=== PATIENT | female | born 1960 | race Caucasian/White ===

== ENCOUNTER 2017-02-08 17:12 | Emergency (ER) | payer MEDICARE, MEDICAID ==
[~2017-02-08] VITALS: Ht 157.5 cm; Wt 135.6 kg
[~2017-02-08 17:12] MED LIST: ACETAMINOPHEN-COD #3 PO; ASPIRIN 81MG TA81 MG PO; BACTROBAN2% TP; BAYER ASPIRIN C81 MG PO; BISOPROLOL/HCTZ1 TA1 PO; CLINDAMYCIN HC300 MG PO; CLONAZEPAM1 M2 PO; DIGOXIN0.25 MG NG; DIGOXIN0.25 MG PO; GABAPENTIN100 M1 PO; LASIX40 MG PO; NITROGLYCERIN0.4 MG SL; PAROXETINE20 M1 PO; QUALITY CHOICE20 M1 PO; SIMVASTATIN40 MG PO; TYLENOL W/CODEI1 TA2 PO
[2017-02-08 17:37] LABS: AEROMONAS NOT DETECTED (NOT DETECTE); ASTROVIRUS NOT DETECTED (NOT DETECTE); CYCLOSPORA CAYETANENSIS NOT DETECTED (NOT DETECTE); E COLI O157 NOT DETECTED (NOT DETECTE); ENTEROAGGREGATIVE E COLI NOT DETECTED (NOT DETECTE); ENTEROTOXIGENIC E COLI NOT DETECTED (NOT DETECTE); NOROVIRUS NOT DETECTED (NOT DETECTE); SAPOVIRUS NOT DETECTED (NOT DETECTE); SHIGA-LIKE TOXIN PROD. E COLI NOT DETECTED (NOT DETECTE); SHIGELLA/ENTEROINVASIVE E COLI NOT DETECTED (NOT DETECTE); VIBRIO CHOLERAE NOT DETECTED (NOT DETECTE)
[2017-02-08 17:42] LABS: HEMOGLOBIN 15.2 g/dL (12.2-16.2); LYMPH # 1.5 K/mm3 (0.7-4.5); LYMPH % 11.7 % (10-50.0)
[2017-02-08 17:51] LABS: STOOL OCCULT BLOOD POSITIVE (NEG)
--- NOTE | 2017-02-08 18:31 | Emergency Room Report ---
History of Present Illness Time Seen by [id number] Presenting Problem in Triage Pt arrived:Walked Presenting Problem:PT REPORTS HAS HAD APPROX 5-6 BLOODY BOWEL MOVEMENTS IN THE PAST 2 HOURS. PT REPORTS HAD A COLONOSCOPY ON SATURDAY. 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 N Clinical Suspician of Infection? N Mental Status: 1 - Regular (Normal Baseline) Sepsis Risk:Low Sepsis Risk Have you (or family members/close friends) recently traveled outside the [place]? N If Yes, where/when: Have you had exposure to infectious disease within the past month? N TB? Other? Specify: Colonoscopy per Dr. Cardona with polypectomy, note reviewed; discharged stable and has had some bloody bowel movements, watery since that time. Eating well. No abdominal pain. No dizziness. Polypectomy/scope note reviewed and was performed yesterday, 02/07/17. Indication was routine surveillance. ALLERGIES Coded Allergies: No Known Drug Allergies (02/07/17) History Medical History General CAD? No Angina: Yes [place]: No Hypertension? Yes Hyperlipidemia? Yes CHF? No DVT? No PE? No COPD? Yes Asthma? No Anemia? No GERD? No Gastric ulcers? No GI Bleed? No Hernia? Yes Thyroid Problems? No Hypothyroidism? No CVA? No Seizures? No Diabetes? No Renal Insuffiency? No End Stage Renal Disease? No UTI? No Stones? No GB Disease: No Nephritic Syndrome? No Asplenia? No Hepatitis? No Sickle Cell Disease? No Arthritis? No Cataracts? No Glaucoma? No MRSA? No TB? No Cancer? 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 Family History Family Hx Diabetes Yes CAD No Hypertension Yes Hyperlipidemia Yes Cancer Yes TB No Social History Smoking Hx Smoker: Current Every Day Smoker Tobacco: Yes Type Cigarettes Packs/day < 1 Pack Alcohol Alcohol: No Review of Systems All Other Systems Reviewed and Negative Gastrointestinal see HPI Physical Exam Vital Signs Vital Signs Date Time Temp Pulse Resp B/P Pulse O2 O2 Flow FiO2 Ox Delivery Rate 02/08 1827 98.7 90 20 120/83 93 02/08 1718 98.9 82 18 103/78 92 General Appearance normal appearance, WD/WN, no apparent distress Eye Exam - bilateral eye normal exam, bilateral eye PERRL, bilateral eye EOMI Neck normal inspection, non-tender, supple, full range of motion Respiratory Status Yes: trachea midline, chest symmetrical, non tender chest. No: respiratory distress, tender on palpation, use of accessory muscles, pain on inspiration, pain on expiration, productive cough. Lung Sounds bilateral: normal breath sounds, lungs clear. 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 sample sent to lab pos for blood. Neurologic alert, normal exam, no motor/sensory deficits, oriented x 3 Skin intact, normal color, warm/dry Medical Decision Making LABS/Meds/Orders Pt receiving controlled substance in ED? No Results/Orders Laboratory Tests 02/08/17 1730: Sodium 142, Potassium 3.6, Chloride 103, Carbon Dioxide 30, BUN 15, Creatinine 1.1 H, Estimated Creat Clear 122, Estimated GFR (MDRD) 51 L, Glucose 129 H, Calcium 8.6, Total Bilirubin 0.3, AST 30, ALT 39, Alkaline Phosphatase 185 H, Total Protein 7.6, Albumin 3.2 L, Globulin 4.4 H, Albumin/Globulin Ratio 0.7 L, WBC 13.1 H, RBC 4.90, Hgb 15.2, Hct 45.8, MCV 93.5, RDW 13.8, Plt Count 275, MPV 7.6, Gran % 81.6 H, Gran # 10.7 H, Lymphocytes % 11.7, Monocytes % 4.3, Eosinophils % 1.8, Basophils % 0.5, Lymphocytes # 1.5, Monocytes # 0.6, Eosinophils # 0.2, Basophils # 0.1, PUBS MCHC 33.3, [facility] 31.1 02/08/17 1721: Stool Occult Blood POSITIVE 02/08/17 1721: Stl Cyclospora species NOT DETECTED, Stool Rotavirus (PCR) NOT DETECTED, Stool Campylobacter PCR NOT DETECTED, Stool Giardia Lamblia PCR NOT DETECTED, Stl Norovirus GI/GII PCR NOT DETECTED, Adenovirus (PCR) NOT DETECTED, C. difficile Tox (PCR) NOT DETECTED, E. coli (PCR) NOT DETECTED, Yersinia (PCR) NOT DETECTED Current Medication Orders Sig/Sandra Start time Last Medication Dose Route Stop Time Status Admin Sodium Chloride 1,000 ML .Q1H1M 02/08 174 DC 02/08 IV 02/08 1845 1753 Sodium Chloride 10 ML PRN PRN 02/08 1745 AC IV 02/09 174 Orders Procedure Date/time Status IV SALINE LOCK 02/08 173 Active ORTHOSTATIC B/P 02/08 173 Active STOOL OCCULT BLOOD 02/08 173 Complete DIARRHEA PANEL, PCR 02/08 173 Complete CBC WITH AUTO DIFF 02/08 173 Complete CHEM 12 PROFILE 02/08 1730 Complete Consult MD Physician Consult Consult/PCP Dr. Dan: outpatient H and H tomorrow AM lab call result to him Time Called 183 Reason Surgical eval/care Progress ED Progress Notes Date 02/08/17 Time 1928 Comment HDS, no abdominal pain, likely post polypectomy bleeding, d/c home per d/w Dr. Dan Departure Departure Time of Disposition 1928 Disposition DC Home or Self Care(routine) Clinical Impression Primary Impression: Post-op bleeding Qualifiers: Surgical complication system/body Area: digestive system Procedure type: digestive system Qualified Code: K91.840 - Postprocedural hemorrhage of a digestive system organ or structure following a digestive system procedure Condition STABLE Referrals Abelino Moore MD (Family) Patient Instructions DI for Colon Polypectomy Additional Instructions Dr. Dan has requested repeated hemoglobin/hematocrit outpatient tomorrow morning; results to be called to him and he will contact you if level is concerning; go to closest ER if sudden increase in bleeding, any pain or any concerns. Discharge Counseling Counseled pt/family regarding diagnosis, test results, home care, follow up needs ED Critical Care Critical Care No at 1931
--- NOTE | 2017-02-08 18:31 | Emergency Room Report ---
History of Present Illness Time Seen by [id number] Presenting Problem in Triage Pt arrived:Walked Presenting Problem:PT REPORTS HAS HAD APPROX 5-6 BLOODY BOWEL MOVEMENTS IN THE PAST 2 HOURS. PT REPORTS HAD A COLONOSCOPY ON SATURDAY. 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 N Clinical Suspician of Infection? N Mental Status: 1 - Regular (Normal Baseline) Sepsis Risk:Low Sepsis Risk Have you (or family members/close friends) recently traveled outside the [place]? N If Yes, where/when: Have you had exposure to infectious disease within the past month? N TB? Other? Specify: Colonoscopy per Dr. Cardona with polypectomy, note reviewed; discharged stable and has had some bloody bowel movements, watery since that time. Eating well. No abdominal pain. No dizziness. Polypectomy/scope note reviewed and was performed yesterday, 02/07/17. Indication was routine surveillance. ALLERGIES Coded Allergies: No Known Drug Allergies (02/07/17) History Medical History General CAD? No Angina: Yes [place]: No Hypertension? Yes Hyperlipidemia? Yes CHF? No DVT? No PE? No COPD? Yes Asthma? No Anemia? No GERD? No Gastric ulcers? No GI Bleed? No Hernia? Yes Thyroid Problems? No Hypothyroidism? No CVA? No Seizures? No Diabetes? No Renal Insuffiency? No End Stage Renal Disease? No UTI? No Stones? No GB Disease: No Nephritic Syndrome? No Asplenia? No Hepatitis? No Sickle Cell Disease? No Arthritis? No Cataracts? No Glaucoma? No MRSA? No TB? No Cancer? 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 Family History Family Hx Diabetes Yes CAD No Hypertension Yes Hyperlipidemia Yes Cancer Yes TB No Social History Smoking Hx Smoker: Current Every Day Smoker Tobacco: Yes Type Cigarettes Packs/day < 1 Pack Alcohol Alcohol: No Review of Systems All Other Systems Reviewed and Negative Gastrointestinal see HPI Physical Exam Vital Signs Vital Signs Date Time Temp Pulse Resp B/P Pulse O2 O2 Flow FiO2 Ox Delivery Rate 02/08 1827 98.7 90 20 120/83 93 02/08 1718 98.9 82 18 103/78 92 General Appearance normal appearance, WD/WN, no apparent distress Eye Exam - bilateral eye normal exam, bilateral eye PERRL, bilateral eye EOMI Neck normal inspection, non-tender, supple, full range of motion Respiratory Status Yes: trachea midline, chest symmetrical, non tender chest. No: respiratory distress, tender on palpation, use of accessory muscles, pain on inspiration, pain on expiration, productive cough. Lung Sounds bilateral: normal breath sounds, lungs clear. 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 sample sent to lab pos for blood. Neurologic alert, normal exam, no motor/sensory deficits, oriented x 3 Skin intact, normal color, warm/dry Medical Decision Making LABS/Meds/Orders Pt receiving controlled substance in ED? No Results/Orders Laboratory Tests 02/08/17 1730: Sodium 142, Potassium 3.6, Chloride 103, Carbon Dioxide 30, BUN 15, Creatinine 1.1 H, Estimated Creat Clear 122, Estimated GFR (MDRD) 51 L, Glucose 129 H, Calcium 8.6, Total Bilirubin 0.3, AST 30, ALT 39, Alkaline Phosphatase 185 H, Total Protein 7.6, Albumin 3.2 L, Globulin 4.4 H, Albumin/Globulin Ratio 0.7 L, WBC 13.1 H, RBC 4.90, Hgb 15.2, Hct 45.8, MCV 93.5, RDW 13.8, Plt Count 275, MPV 7.6, Gran % 81.6 H, Gran # 10.7 H, Lymphocytes % 11.7, Monocytes % 4.3, Eosinophils % 1.8, Basophils % 0.5, Lymphocytes # 1.5, Monocytes # 0.6, Eosinophils # 0.2, Basophils # 0.1, PUBS MCHC 33.3, [facility] 31.1 02/08/17 1721: Stool Occult Blood POSITIVE 02/08/17 1721: Stl Cyclospora species NOT DETECTED, Stool Rotavirus (PCR) NOT DETECTED, Stool Campylobacter PCR NOT DETECTED, Stool Giardia Lamblia PCR NOT DETECTED, Stl Norovirus GI/GII PCR NOT DETECTED, Adenovirus (PCR) NOT DETECTED, C. difficile Tox (PCR) NOT DETECTED, E. coli (PCR) NOT DETECTED, Yersinia (PCR) NOT DETECTED Current Medication Orders Sig/Sandra Start time Last Medication Dose Route Stop Time Status Admin Sodium Chloride 1,000 ML .Q1H1M 02/08 174 DC 02/08 IV 02/08 1845 1753 Sodium Chloride 10 ML PRN PRN 02/08 1745 AC IV 02/09 174 Orders Procedure Date/time Status IV SALINE LOCK 02/08 173 Active ORTHOSTATIC B/P 02/08 173 Active STOOL OCCULT BLOOD 02/08 173 Complete DIARRHEA PANEL, PCR 02/08 173 Complete CBC WITH AUTO DIFF 02/08 173 Complete CHEM 12 PROFILE 02/08 1730 Complete Consult MD Physician Consult Consult/PCP Dr. Dan: outpatient H and H tomorrow AM lab call result to him Time Called 183 Reason Surgical eval/care Progress ED Progress Notes Date 02/08/17 Time 1928 Comment HDS, no abdominal pain, likely post polypectomy bleeding, d/c home per d/w Dr. Dan Departure Departure Time of Disposition 1928 Disposition DC Home or Self Care(routine) Clinical Impression Primary Impression: Post-op bleeding Qualifiers: Surgical complication system/body Area: digestive system Procedure type: digestive system Qualified Code: K91.840 - Postprocedural hemorrhage of a digestive system organ or structure following a digestive system procedure Condition STABLE Referrals Abelino Moore MD (Family) Patient Instructions DI for Colon Polypectomy Additional Instructions Dr. Dan has requested repeated hemoglobin/hematocrit outpatient tomorrow morning; results to be called to him and he will contact you if level is concerning; go to closest ER if sudden increase in bleeding, any pain or any concerns. Discharge Counseling Counseled pt/family regarding diagnosis, test results, home care, follow up needs ED Critical Care Critical Care No at 1931
[2017-02-08 19:28] LABS: ENTEROPATHOGENIC E COLI DETECTED (NOT DETECTE)
[2017-02-08 19:36] VITALS: BP 120/83
== END 2017-02-08 19:36 | disposition home or self-care (01) ==
LOC: ER 17:12
PROVIDERS: Emergency Medicine
DX: K91.840 Postprocedural hemorrhage of a digestive system organ or structure following a digestive system procedure (principal); Z72.0 Tobacco use; I10 Essential (primary) hypertension; J44.9 Chronic obstructive pulmonary disease, unspecified
CPT/HCPCS: G0328

== ENCOUNTER → 2017-02-13 | Outpatient (CLI) | payer MEDICARE, MEDICAID ==
[2017-02-13 14:28] LABS: HEMOGLOBIN 10.2 g/dL (12.2-16.2)
== END ==
LOC: LAB 13:44
PROVIDERS: Surgery
DX: K91.840 Postprocedural hemorrhage of a digestive system organ or structure following a digestive system procedure (principal)

== ENCOUNTER 2017-03-16 17:43 | Emergency (ER) | payer MEDICARE, MEDICAID ==
[~2017-03-16] VITALS: Ht 157.5 cm; Wt 141.1 kg
--- NOTE | 2017-03-16 19:00 | Emergency Room Report ---
History of Present Illness Time Seen by [id number] Presenting Problem in Triage Pt arrived:Walked Presenting Problem:PT STATES THAT SHE FEELS LIKE SHE CANT CATCH A GOOD BREATH. STATES THAT SHE IS A SMOKER, AND WHEN SHE STARTS COUGHING SHE CAN'T CATCH HER BREATH. WHENA ASKED HOW LONG SHE HAS BEEN SHORT OF BREATH SHE STATES THAT SHE HAD A COLON OSCOPY ON 02/11/17 AND SINCE THEN SHE HAS JUST NOT FELT WELL/RIGHT, HAS BEEN WEAK AND FEELS LIKE HER LEGS WILL FALL OUT FROM UNDERNEATH HER. 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 N Clinical Suspician of Infection? N Mental Status: 1 - Regular (Normal Baseline) Sepsis Risk:Low Sepsis Risk Have you (or family members/close friends) recently traveled outside the [place]? N If Yes, where/when Have you had exposure to infectious disease within the past month? TB? Other? Specify: Tight cough, dry, bronchospasm the last few days. Has baseline CURRAN and hx of CHF , chronic edema. Denies any new edema or calf pain; uses compression stockings. No sputum. Had colitis treated with Abx about six weeks ago sp routine colonoscopy. No fever or congestion this week; no flu sx. No urinary sx or abdominal pain. No gui chest pain but has hx of sleep apnea and tobacco abuse, now on Wellbutrin per PCP. ALLERGIES Coded Allergies: No Known Drug Allergies (02/07/17) Home Medications Reported Medications Furosemide (Lasix 40MG) 40 MG PO BID Nitroglycerin (Nitrostat 0.4MG (1/150 Gr) Tabs #25) 0.4 MG SL [id number] PRN CHEST PAIN Clonazepam (Clonazepam 1MG) 1 MG PO BIDP PRN ANXIETY Omeprazole 20 MG PO BID ASPIRIN (Aspirin) 81 MG PO DAILY Losartan Potassium (Losartan 50MG) 50 MG PO DAILY Bupropion Hcl (Bupropion HCl Sr) 150 MG PO QAM Fluoxetine Hcl (Fluoxetine 20MG) 20 MG PO DAILY FLUTICASONE/VILANTEROL (Breo Ellipta 100-25 Mcg INH) 1 POW IH DAILY History Medical History General CAD? No Angina: Yes [place]: No Hypertension? Yes Hyperlipidemia? Yes CHF? No DVT? No PE? No COPD? Yes Asthma? No Anemia? No GERD? No Gastric ulcers? No GI Bleed? No Hernia? Yes Thyroid Problems? No Hypothyroidism? No CVA? No Seizures? No Diabetes? No Renal Insuffiency? No End Stage Renal Disease? No UTI? No Stones? No GB Disease: No Nephritic Syndrome? No Asplenia? No Hepatitis? No Sickle Cell Disease? No Arthritis? No Cataracts? No Glaucoma? No MRSA? No TB? No Cancer? 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 Family History Family Hx Diabetes Yes CAD No Hypertension Yes Hyperlipidemia Yes Cancer Yes TB No Social History Smoking Hx Smoker: Current Every Day Smoker Tobacco: Yes Type Cigarettes Packs/day < 1 Pack Alcohol Alcohol: No Review of Systems All Other Systems Reviewed and Negative Respiratory see HPI Physical Exam Vital Signs Vital Signs Date Time Temp Pulse Resp B/P Pulse O2 O2 Flow FiO2 Ox Delivery Rate 03/16 2011 74 16 129/59 94 3 03/16 1755 98.2 77 20 135/72 93 General Appearance normal appearance, WD/WN, no apparent distress Eye Exam - bilateral eye normal exam, bilateral eye PERRL, bilateral eye EOMI Neck normal inspection, non-tender, supple, full range of motion Respiratory Status Yes: trachea midline, chest symmetrical, non tender chest, non productive cough. No: respiratory distress, tender on palpation, use of accessory muscles, pain on inspiration, pain on expiration, productive cough. Lung Sounds bilateral: normal breath sounds, lungs clear (tight cough). Cardiovascular normal exam, regular rate/rhythm, no peripheral edema, no gallop Peripheral Pulses Pulses normal Yes Gastrointestinal normal bowel sounds, normal exam, non tender, soft, no organomegaly (reducible ventral hernia;obese) Extremities non-tender, normal range of motion, normal capillary refill, no calf tenderness, pedal edema, compression hose in place Strength 5 Upper Ext (L), 5 Upper Ext (R), 5 Lower Ext (L), 5 Lower Ext (R) Neurologic alert, normal exam, no motor/sensory deficits, oriented x 3 Glascow Coma Scale Glascow Coma Scale Response Value EYE response: 4 Spontaneously 4 MOTOR response: 6 OBEYS 6 VERBAL response: 5 Oriented & Converses 5 Total 15 Skin intact, normal color, warm/dry Medical Decision Making LABS/Meds/Orders Pt receiving controlled substance in ED? No Results/Orders Laboratory Tests 03/16/171909: Sodium 139, Potassium 3.7, Chloride 101, Carbon Dioxide 34 H, BUN 12, Creatinine 0.9, Estimated Creat Clear 155, Estimated GFR (MDRD) 65, Glucose 97, Calcium 9.0, Total Bilirubin 0.3, AST 25, ALT 27, Alkaline Phosphatase 161 H, Troponin I < 0.02, Total Protein 7.7, Albumin 3.5, Globulin 4.2 H, Albumin/ Globulin Ratio 0.8 L, WBC 11.0 H, RBC 4.18 L, Hgb 11.7 L, Hct 37.5, MCV 89.7 , RDW 14.9, Plt Count 394, MPV 7.0 L, Gran % 77.8, Gran # 8.6 H, Lymphocytes % 14.3, Monocytes % 5.0, Eosinophils % 2.0, Basophils % 0.8, Lymphocytes # 1.6, Monocytes # 0.6, Eosinophils # 0.2, Basophils # 0.1, PUBS MCHC 31.1 L, MCH 27.9 Current Medication Orders Sig/Sandra Start time Last Medication Dose Route Stop Time Status Admin Azithromycin 500 MG ONCE ONE 03/16 2030 AC PO 03/16 2031 Albuterol/Ipratropium 0 .STK-MED ONE 03/16 1924 DC INH Methylprednisolone 0 .STK-MED ONE 03/16 1915 DC Sodium Succinate .ROUTE Albuterol/Ipratropium 3 ML ONCE ONE 03/16 1845 DC INH 03/16 1846 Methylprednisolone 125 MG ONCE ONE 03/16 1845 DC 03/16 Sodium Succinate IV 03/16 Sodium Chloride 10 ML PRN PRN 03/16 1845 AC IV 03/17 1841 Orders Procedure Date/time Status RT REQUEST DUONEB 03/16 1842 Active CULTURE, BLOOD 03/16 1842 Active ELECTROCARDIOGRAM REQUEST 03/16 1841 Active IV SALINE LOCK 03/16 1841 Active TROPONIN I 03/16 1841 Complete CBC WITH AUTO DIFF 03/16 1841 Complete CHEM 12 PROFILE 09/30 1841 Complete CHEST(2 VIEWS-NOT PORTABLE) 03/16 1836 Active CM/EKG CM/EKG EKG rate, NSR, rhythm, no evid. of ischemic chgs, no ectopy, normal QRS, normal [place], normal EKG (NSR 77) XRAY/CT/US XRAY/CT/US XRAY chest XR interpretation by reviewed by me Xray Results abnormal, prominent hilum seen previously; mild congestion; mild atelectasis left base Pulmonary Embolism Score WELL'S CRITERIA FOR PE WELL'S CRITERIA FOR PE Response Value Clinical signs/symptoms of DVT NO 0 PE is #1 diagnosis or equally likely NO 0 Heart rate is > 100 NO 0 Immobile at least 3 days, or surgery in past 4 wks NO 0 Previously, obj. diagnosed PE or DVT NO 0 Hemoptysis NO 0 Malignancy w/Rx within 6mo, or palliative NO 0 Total 0 Patient's PE Risk <1pt=LO RISK (<3%) Progress ED Progress Notes Date 03/16/17 Time 2020 Comment Stable, no tachypnea. Departure Departure Time of Disposition 2023 Disposition DC Home or Self Care(routine) Clinical Impression Primary Impression: Bronchitis Condition STABLE Referrals Abelino Moore MD (Family) Patient Instructions Acute Bronchitis Additional Instructions See Dr. Moore in one to two days for follow up; Rx Zithromax, Rx medrol dosepak , continue CPap. Take first doses of Z'max and medrol tomorrow afternoon/early evening. Discharge Counseling Counseled pt/family regarding diagnosis, test results, medications/RX, home care, follow up needs Prescriptions Current Visit Scripts Azithromycin (Azithromycin 250MG Tab) 250 MG PO DAILY #4 TAB take first dose on 03/17/17 as day one initiated in ER Methylprednisolone (Medrol Dose Biju) 4 MG PO UD #1 BIJU TAKE DIRECTED ON PACKAGING ED Critical Care Critical Care No at 2026
[2017-03-16 19:31] LABS: LYMPH # 1.6 K/mm3 (0.7-4.5); LYMPH % 14.3 % (10-50.0)
[2017-03-16 19:46] LABS: HEMOGLOBIN 11.7 g/dL (12.2-16.2)
[2017-03-16 19:51] LABS: BUN 12 mg/dL (7-18); GFR (ESTIMATED) 65 ML/MIN (59-)
[2017-03-16 20:47] VITALS: BP 129/59
--- NOTE | 2017-03-17 10:08 | RADIOLOGY REPORT PS360 ---
CHEST(2 VIEWS-NOT PORTABLE) HISTORY: SOB Patient Age: 56 years: Female Ordering Physician: Brittany Mcmahon MD TECHNIQUE: PA and lateral chest COMPARISON :07/06/2014 and 07/05/2014 CXR. Also August 2013 FINDINGS We again see the prominent right hilum but this appears similar and stable since August 2013. Mild cardiomegaly. Mediastinal structures are otherwise unremarkable. Left will stable. There is some mild accentuation of vascularity but no focal pneumonia. No CHF. No pleural effusion. No pneumothorax. Mild chronic changes. Scattered slight nodular character bilaterally I believe is seen on old studies from 2013 as well. The prior CT abdomen from 2012 showed numerous calcified granulomas towards the lung base which would account for such.. ( I would also incidentally note that the patient had a moderate pericardial effusion on that 2013 CT abdomen. Progress echocardiogram may be of benefit in follow-up current shortness of breath symptoms persist) IMPRESSION: nothing definitely acute. Prominent right will unchanged since August 2013 CXR Cardiomegaly again observed. Note comments in text Granulomatous disease most likely accounts for the tiny scattered nodular densities bilaterally
--- OUTSIDE RECORDS SUMMARY | 2017-03-27 19:35 | External Medical Summary Rpt ---
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 Role Phone [facility] Unavailable Unavailable [facility] Unavailable Unavailable [facility], Unavailable Unavailable [facility] AMARO JUN, AMARO JUN Unavailable Unavailable ALTAMIRANO ROL, ALTAMIRANO Unavailable Unavailable ROL BESSON CYNTHIA, BESSON Unavailable Unavailable CYNTHIA PASTORA JEEVAN, Unavailable Unavailable PASTORA JEEVAN EUNICE KET, EUNICE KET Unavailable Unavailable [facility] Unavailable Unavailable [facility], [facility] Unavailable Unavailable [facility], [facility] COZ YATACO ANG, COZ Unavailable Unavailable YATACO ANG TIFFANI ABDULKADIR, Unavailable Unavailable TIFFANI ABDULKADIR RUELAS MAT, RUELAS Unavailable Unavailable MAT DISANTIS GEENA, Unavailable Unavailable DISANTIS GEENA ASHLEY DEYA, ASHLEY Unavailable Unavailable DEYA [facility] Unavailable Unavailable INC, [facility] Unavailable Unavailable HOSPITAL P, [facility], Unavailable Unavailable [facility] FINE CYNTHIA, FINE CYNTHIA Unavailable Unavailable NOVA RHIANNON, NOVA RHIANNON Unavailable Unavailable [facility] NANDO JEEVAN, NANDO JEEVAN Unavailable Unavailable [facility] Unavailable Unavailable INTERNAL MED, [facility], Unavailable Unavailable [facility] LYNDA RONAL, LYNDA RONAL Unavailable Unavailable [facility] JALEEL, Unavailable Unavailable [facility]ALE[facility] Unavailable Unavailable [facility], [facility] Unavailable Unavailable [facility], [facility] Unavailable Unavailable [facility], [facility] CAROLYN JUN, CAROLYN Unavailable Unavailable JUN TYLER BENY CYNTHIA, Unavailable Unavailable TYLER BENY [facility], Unavailable Unavailable [facility] Unavailable Unavailable VIKTORIA DEYA, VIKTORIA Unavailable Unavailable DEYA ZAGUROVSKAYA MAR, Unavailable Unavailable ZAGUROVSKAYA MAR Purpose Continuity of Care Document - 06-29-2013 through 2016 Problems Code Diagnosis DOS Provider Status G4733 OBSTRUCTIVE 04-05-2015 [facility] ADULT MEDICAL PEDIATRIC EQUIPME E785 HYPERLIPIDE 03-22-2015 [facility] UNSPECIFIED INC I890 LYMPHEDEMA 03-22-2015 [facility] NOT [facility] ELSEWHERE INC CLASSIFIED I10 ESSENTIAL 03-21-2015 [facility] HYPERTENSIO INTERNAL N MED K429 UMBILICAL 03-21-2015 [facility] HERNIA [facility] WITHOUT INTERNAL OBSTRUCTION MED OR GANGRENE Z1231 ENCOUNTER 03-21-2015 [place] [facility]MO MALIG IMAGING ASS NEOPLASM BREAST Z1239 ENCOUNTER 03-21-2015 [facility] SCREENING INC MALIG NEOPLASM BREAST Z6842 BODY MASS 03-21-2015 [facility] INDEX BMI VALLEY 45.0-49.9 INTERNAL ADULT MED 14078 OBSTRUCTIVE 03-06-2015 [facility] MEDICAL EQUIPME 4019 UNSPECIFIED 12-20-2014 [facility] ESSENTIAL [facility] HYPERTENSIO INTERNAL N MED 496 CHRONIC 12-20-2014 [facility] AIRWAY [facility] OBSTRUCTION INTERNAL NEC MED 7822 LOCALIZED 12-20-2014 [facility] SUPERFICIAL [facility] SWELLING INTERNAL MASS OR MED LUMP V7231 ROUTINE 12-20-2014 [facility] GYNECOLOGIC [facility] AL INTERNAL EXAMINATION MED 33334 MORBID 10-25-2014 [facility] OBESITY [facility] INTERNAL MED 4571 OTHER 10-25-2014 [facility] NONINFECTIO VALLEY US INTERNAL LYMPHEDEMA MED 7823 EDEMA 10-25-2014 [facility] INTERNAL MED 2724 OTHER AND 08-26-2014 [facility] UNSPECIFIED [facility]LEY INTERNAL HYPERLIPIDE MED [facility] 82531 UNSPECIFIED 08-26-2014 [facility] DIASTOLIC [facility] HEART INTERNAL FAILURE MED 33982 UNSPECIFIED 08-26-2014 [facility] SLEEP [facility] APNEA INTERNAL MED 7862 COUGH 08-26-2014 [facility] INTERNAL MED 45215 ACUTE AND 07-26-2014 [facility] CHRONIC RESPIRATORY FAILURE 12409 MUSCLE 07-26-2014 [facility] WEAKNESS (GENERALIZE D) 7812 ABNORMALITY 07-26-2014 [facility] OF GAIT 2384 NEOPLASM 07-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 A VERA 7245 UNSPECIFIED 07-24-2014 [facility] BACKACHE SERV [facility] 14065 OTHER 07-21-2014 [facility] AL[facility]ATION SERV OF FOUNDATION CONSCIOUSNE SS V5882 ENCOUNTER 07-20-2014 [facility] FITTING&ADJ SERV [facility] NON-VASCULA R CATHETER NEC 5119 UNSPECIFIED 07-19-2014 [facility] PLEURAL [facility] EFFUSION [facility] 5180 PULMONARY 07-19-2014 [facility] COLLAPSE [facility] 7869 OTH 07-19-2014 [facility] SYMPTOMS SERV INVOLVING [facility] RESPIRATORY SYSTEM&CHES T 514 PULMONARY 07-18-2014 [facility] HYPOSTASIS 51269 ACUTE 07-18-2014 [facility] FAILURE [facility] 35227 OBESITY 07-17-2014 [facility] HYPOVENTILA SERV TION [facility] SYNDROME 486 PNEUMONIA, 07-17-2014 [facility] ORGANISM [facility] UNSPECIFIED [facility] 24260 OTHER 07-17-2014 [facility] DISEASES OF SERV LUNG NOT [facility] ELSEWHERE CLASSIFIED 95245 OTHER 07-17-2014 [facility] NONSPECIFIC SERV ABNORMAL [facility] FINDING OF LUNG FIELD 4293 CARDIOMEGAL 07-16-2014 [facility] Y [facility] 48071 OTHER 07-14-2014 [facility] SPECIFIED SERV CARDIAC [facility] DYSRHYTHMIA S 2763 ALKALOSIS 07-09-2014 [facility] 4150 ACUTE COR 07-09-2014 [facility] PULMONALE [facility] 2762 ACIDOSIS 07-08-2014 [facility] 7856 ENLARGEMENT 07-08-2014 [facility] OF LYMPH SERV NODES [facility] 586 UNSPECIFIED 07-07-2014 [facility] RENAL [facility] FAILURE [facility] 19184 SWELLING OF 07-07-2014 [facility] LIMB [facility] V4611 DEPENDENCE 07-07-2014 [facility] ON [facility] RESPIRATOR [facility] STATUS 4168 OTHER 07-06-2014 [facility] PULMONARY HEART DISEASES 4178 OTHER 07-06-2014 [facility] SPECIFIED SERV DISEASE OF [facility]OUNDATION PULMONARY CIRCULATION 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 [facility] 4242 TRICUSPID 07-06-2014 [facility] DISORDERS [facility] SPEC NONRHEUMATI C 4243 PULMONARY 07-06-2014 [facility] DISORDERS [facility] 98313 OBSTRUCTIVE 07-06-2014 [facility] CHRONIC [facility]LEY BRONCHITIS INTERNAL WITH MED EXACERBATIO N 5849 ACUTE 07-06-2014 [facility] FAILURE UNSPECIFIED 6826 CELLULITIS 07-06-2014 [facility] OF LEG EXCEPT FOOT 40005 SHORTNESS 07-06-2014 [facility] BREATH SERV [facility] 96548 NONSPECIFIC 07-06-2014 [facility] ABNORMAL SERV ELECTROCARD [facility] IOGRAM V8543 BODY MASS 07-04-2014 [facility] INDEX [facility] 50.0-59.9 HOSPITAL P ADULT 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 73674 UNSPECIFIED 03-11-2014 [facility] ESOPHAGITIS GROUP 02752 UNS 03-11-2014 [facility] GASTRITIS&G PHYSICIANS ASTRODUODIT GROUP IS W/O MENTION HEMORR 57898 REFLUX 03-04-2014 [facility] ESOPH[facility] 5379 UNSPECIFIED 03-04-2014 [facility] DISORDER [facility] OF STOMACH AND DUODENUM 88290 DYSPHAGIA 03-04-2014 [facility] UNSPECIFIED PHYSICIANS GROUP 49616 INCI HERNIA 02-23-2014 [facility] WITHOUT PHYSICIANS MENTION GROUP OBSTRUCTION /GANGRENE 5990 URINARY 11-06-2013 [facility] INFECTION LA SITE NOT SPECIFIED V571 OTHER 09-15-2013 [place] [facility] THERAPY INC 4148 OTHER SPEC 09-09-2013 [facility] MEDICAL CHRONIC IMAGING ASS ISCHEMIC HEART DISEASE 52746 CHEST PAIN 09-09-2013 [facility] P 86195 OTHER CHEST 09-02-2013 [facility] Procedures Procedure DOS Code Location Performer Comment O2 CONC 1 E1390 [facility] [place] 5 HOME HOME 85%/>02 MEDICAL MEDICAL CONC [facility] R[facility] COL[facility] 11888 [facility] N VENOUS 5 [facility] BLOOD INC INC VENIPUNCT URE COMPREHEN 04911 [facility] SIVE 5 [facility] METABOLIC INC INC PANEL BLOOD 12681 [facility] COUNT 5 [facility] COMPLETE INC INC AUTO&AUTO DIFRNTL WBC LIPID 76400 [facility]EL [facility] INC INC COMPUTER- 56229 [place] [facility] 5 MEDICAL ABDULKADIR DETECTION IMAGING ASS SCREENING MAMMOGRAP HY SCREENING G0202 [facility] 5 MEDICAL ABDULKADIR MAMMOGRAP IMAGING HY EH ASS INCL CAD WHEN PERFORMD O2 CONC 1 E1390 [facility] [place] 5 HOME HOME 85%/>02 MEDICAL MEDICAL CONC AT EQUIPME EQUIPME [email or web address] FLW RATE O2 CONC 1 E1390 [facility] [place] 5 HOME HOME 85%/>02 MEDICAL MEDICAL CONC AT EQUIPME EQUIPME [email or web address] FLW RATE O2 CONC 1 E1390 [facility] [place] 5 HOME HOME 85%/>02 MEDICAL MEDICAL CONC AT EQUIPME EQUIPME PRS FLW RATE URNLS DIP 59964 [facility] BESSON 5 VALLEY CYNTHIA STICK/TAB INTERNAL LET RGNT MED NON-AUTO W/O MICRSCP O2 CONC 1 E1390 [facility] [place] 5 HOME HOME 85%/>02 MEDICAL MEDICAL CONC AT EQUIPME EQUIPME PRS FLW RATE O2 CONC 1 E1390 [facility] [place] 5 HOME HOME 85%/>02 MEDICAL MEDICAL CONC AT EQUIPME EQUIPME PRS FLW RATE BASIC 01083 [facility] METABOLIC 5 [facility] PANEL INC INC CALCIUM TOTAL COLLECTIO 03923 [facility] N VENOUS 5 [facility] BLOOD INC INC VENIPUNCT URE O2 CONC 1 E1390 [facility] [place] 5 HOME HOME 85%/>02 MEDICAL MEDICAL CONC AT EQUIPME EQUIPME PRS FLW RATE O2 CONC 1 E1390 [facility] [place] 5 HOME HOME 85%/>02 MEDICAL MEDICAL CONC AT EQUIPME EQUIPME PRSC FLW RATE COMPREHEN 85262 COMBINED COMBINED SIVE 5 PHYSICIAN PHYSICIAN METABOLIC S LA S LA PANEL LIPID 92116 COMBINED COMBINED PANEL 5 PHYSICIAN PHYSICIAN S LA S LA O2 CONC 1 E1390 [facility] [place] 5 HOME HOME 85%/>02 MEDICAL MEDICAL CONC AT EQUIPME EQUIPME PRS FLW RATE WALKER E0143 [facility] 5 WHEELED ADJUSTABL E/FIXED HEIGHT SBSQ 65936 [facility] 5 MEDICAL YATACO CARE/DAY SERV ANG 25 FOUNDATIO MINUTES N SBSQ 13866 [facility] 5 MEDICAL ROL CARE/DAY SERV 25 FOUNDATIO MINUTES N SBSQ 67072 [facility] 5 MEDICAL ROL CARE/DAY SERV 35 FOUNDATIO MINUTES N RADIOLOGI 03950 [facility] 5 MEDICAL DEYA EXAMINATI SERV ON CHEST FOUNDATIO SINGLE N VIEW FRONTAL RADIOLOGI 23402 [facility] 5 MEDICAL EXAMINATI SERV ON CHEST FOUNDATIO SINGLE N VIEW FRONTAL SBSQ 22919 [facility] 5 MEDICAL ROL CARE/DAY SERV 35 FOUNDATIO MINUTES N SBSQ 00158 [facility] 5 MEDICAL ROL CARE/DAY SERV 35 FOUNDATIO MINUTES N RADIOLOGI 78351 [place] [facility] AYA MAR EXAMINATI SERV ON CHEST FOUNDATIO SINGLE N VIEW FRONTAL RADIOLOGI 60937 [place] VIKTORIA C 5 MEDICAL DEYA EXAMINATI SERV ON CHEST FOUNDATIO SINGLE N VIEW FRONTAL SBSQ 89032 [facility] 5 MEDICAL ROL CARE/DAY SERV 35 FOUNDATIO MINUTES N RADIOLOGI 17365 [place] [facility] 5 MEDICAL EXAMINATI SERV ON CHEST FOUNDATIO SINGLE N VIEW FRONTAL CRITICAL 39568 [facility] 5 MEDICAL Y-HAND ILL/INJUR SERV NICKI ED FOUNDATIO PATIENT N INIT 30-[address] [place] [facility] 5 MEDICAL Y-HAND ILL/INJUR SERV NICKI ED FOUNDATIO PATIENT N INIT 30-74 MIN RADIOLOGI 79504 [place] [facility] 5 MEDICAL EXAMINATI SERV ON CHEST FOUNDATIO SINGLE N VIEW FRONTAL RADIOLOGI 91693 [place] VIKTORIA C 5 MEDICAL DEYA EXAMINATI SERV ON CHEST FOUNDATIO SINGLE N VIEW FRONTAL CRITICAL 96216 [facility] 5 MEDICAL ILL/INJUR SERV ED FOUNDATIO PATIENT N INIT 30-74 MIN RADIOLOGI 82333 [place] [facility] 5 MEDICAL AYA MAR EXAMINATI SERV ON CHEST FOUNDATIO SINGLE N VIEW FRONTAL SBSQ 70600 [place] [facility] 5 MEDICAL CARE/DAY SERV 35 FOUNDATIO MINUTES N ECG 18810 [place] [facility] RHIANNON ROUTINE 5 MEDICAL ECG SERV W/LEAST FOUNDATIO 12 LDS N I&R ONLY RADIOLOGI 03956 [place] [facility] 5 MEDICAL EXAMINATI SERV ON CHEST FOUNDATIO SINGLE N VIEW FRONTAL CRITICAL 60844 [place] [facility] 5 MEDICAL ILL/INJUR SERV ED FOUNDATIO PATIENT N INIT 30-74 MIN SBSQ 66069 [place] [facility] 5 MEDICAL CARE/DAY SERV 35 FOUNDATIO MINUTES N SBSQ 00288 [place] [facility] 5 MEDICAL CARE/DAY SERV 35 FOUNDATIO MINUTES N RADIOLOGI 89107 [place] [facility] 5 MEDICAL EXAMINATI SERV ON CHEST FOUNDATIO SINGLE N VIEW FRONTAL RADIOLOGI 32051 [place] N[facility] JEEVAN C 5 MEDICAL EXAMINATI SERV ON CHEST FOUNDATIO SINGLE N VIEW FRONTAL CRITICAL 97687 [place] [facility] 5 MEDICAL BENY ILL/INJUR SERV CYNTHIA ED FOUNDATIO PATIENT N INIT 30-74 MIN CRITICAL 21959 [place] [facility] 5 MEDICAL BENY ILL/INJUR SERV CYNTHIA ED FOUNDATIO PATIENT N INIT 30-74 MIN RADEX 24560 [place] CAR[facility] ABDOMEN 1 5 MEDICAL JUN SERV ANTEROPOS FOUNDATIO TERIOR N VIEW RADIOLOGI 50030 [place] [facility]SE ANGELK 5 MEDICAL AYA MAR EXAMINATI SERV ON CHEST FOUNDATIO SINGLE N VIEW FRONTAL CRITICAL 74089 [place] [facility] 5 MEDICAL ILL/INJUR SERV ED FOUNDATIO PATIENT N INIT 30-74 MIN CRITICAL 99099 [place] [facility] 5 MEDICAL ILL/INJUR SERV ED FOUNDATIO PATIENT N INIT 30-74 MIN RADIOLOGI 03453 [place] [facility] 5 MEDICAL EXAMINATI SERV ON CHEST FOUNDATIO SINGLE N VIEW FRONTAL RADIOLOGI 38194 [place] MAKSIM[facility]OK C 5 MEDICAL AYA MAR EXAMINATI SERV ON CHEST FOUNDATIO SINGLE N VIEW FRONTAL CRITICAL 25620 [place] [facility] 5 MEDICAL ILL/INJUR SERV ED FOUNDATIO PATIENT N INIT 30-74 MIN DUP-SCAN 44280 [place] [facility] XTR VEINS 5 MEDICAL JEEVAN COMPLETE SERV FOUNDATIO BILATERAL N STUDY CRITICAL 67901 [place] [facility] 5 MEDICAL ILL/INJUR SERV ED FOUNDATIO PATIENT N INIT 30-74 MIN O2 CONC 1 E1390 [facility] [place] 5 HOME HOME 85%/>02 MEDICAL MEDICAL CONC AT EQUIPME EQUIPME PRSC FLW RATE RADIOLOGI 53710 [place] FINE CYNTHIA C 5 MEDICAL EXAMINATI SERV ON CHEST FOUNDATIO SINGLE N VIEW FRONTAL ECHO 73900 [place] SONDRA BARAHONA TTHR R-T 5 MEDICAL 2D SERV W/WOM-MOD FOUNDATIO E COMPL N SPEC&COLR D RADEX 12211 [place] [facility] ABDOMEN 1 5 MEDICAL GEENA SERV ANTEROPOS [facility] 51826 [facility] 5 VALLEY DAY INTERNAL MANAGEMEN MED T 30 MIN/< AMB A0431 AIR AIR SERVICE 5 METHODS METHODS CONVNTION [facility] AIR SRVC TRANSPORT [address] ECG 50373 [place] LYNDA RONAL ROUTINE 5 MEDICAL ECG SERV W/LEAST FOUNDATIO 12 LDS N I&R ONLY ROTARY A0436 AIR AIR WING AIR 5 METHODS [facility] PER STATUTE MILE ECG 88491 [facility] ROUTINE 5 [facility] W/LEAST P 12 LDS I&R ONLY O2 CONC 1 E1390 [facility] [place] 4 HOME HOME 85%/>02 MEDICAL MEDICAL CONC AT EQUIPME EQUIPME [email or web address] FLW RATE O2 CONC 1 E1390 [facility] [place] 4 HOME HOME 85%/>02 MEDICAL MEDICAL CONC AT EQUIPME EQUIPME [email or web address] FLW RATE FULL FACE A7030 [facility] [place] MASK 4 HOME HOME USED MEDICAL MEDICAL W/POS EQUIPME EQUIPME ARWAY PRESS DEVICE EA FILTER A7038 [facility] [place] DISPBL 4 HOME HOME USED MEDICAL MEDICAL W/POS EQUIPME EQUIPME ARWAY PRESSURE DEVICE HEADGEAR A7035 [facility] [place] USED 4 HOME HOME W/POSITIV MEDICAL MEDICAL E AIRWAY EQUIPME EQUIPME PRESSURE DEVICE O2 CONC 1 E1390 [facility] [place] 4 HOME HOME 85%/>02 MEDICAL MEDICAL CONC AT EQUIPME EQUIPME [email or web address] FLW RATE O2 CONC 1 E1390 [facility] [place] 4 HOME HOME 85%/>02 MEDICAL MEDICAL CONC AT EQUIPME EQUIPME [email or web address] [place] [address] [facility] INFUSION 4 [facility] THERAPY INC INC PROPHYLAX IS/[place] [address] [facility], SURG 4 [facility] PATHOLOGY GROSS&DEYA ROSCOPIC EXAM EGD 96228 [facility] SCHULSTAD TRANSORAL 4 PHYSICIAN JALEEL BIOPSY S GROUP SINGLE/MU LTIPLE SPECIAL 66833 [facility], STAIN 4 [facility] GROUP 1 MICROORGA NISMS I&R SPCL STN 35466 [facility], 2 I&R 4 [facility] EXCPT MICROORG/ ENZYME/IM CYT O2 CONC 1 E1390 [facility] [place] 4 HOME HOME 85%/>02 MEDICAL MEDICAL CONC AT EQUIPME EQUIPME PRSC FLW RATE O2 CONC 1 E1390 [facility] [place] 4 HOME HOME 85%/>02 MEDICAL MEDICAL CONC AT EQUIPME EQUIPME PRSC FLW RATE CONTINUOU E0601 [facility] [place] S 4 HOME HOME POSITIVE MEDICAL MEDICAL AIRWAY EQUIPME EQUIPME PRESSURE DEVICE O2 CONC 1 E1390 [facility] [place] 4 HOME HOME 85%/>02 MEDICAL MEDICAL CONC AT EQUIPME EQUIPME PRSC FLW RATE CULTURE 25689 COMBINED COMBINED BACTERIAL 4 PHYSICIAN PHYSICIAN S LA S LA QUANTTATI VE COLONY COUNT URINE O2 CONC 1 E1390 [facility] [place] 4 HOME HOME 85%/>02 MEDICAL MEDICAL CONC AT EQUIPME EQUIPME PRSC FLW RATE LIPID 29240 [facility] PANEL 4 [place] [address] [facility] THYROID 4 [facility] STIMULATI INC INC NG HORMONE TSH COMPREHEN 36269 [facility] SIVE 4 [facility] METABOLIC INC INC PANEL BLOOD 85561 [facility] COUNT 4 [facility] COMPLETE INC INC AUTO&AUTO DIFRNTL WBC O2 CONC 1 E1390 [facility] [place] 4 HOME HOME 85%/>02 MEDICAL MEDICAL CONC AT EQUIPME EQUIPME PRSC FLW RATE MANUAL 35262 [facility] THERAPY 4 [facility] TQS 1/> INC INC REGIONS EACH 15 MINUTES MANUAL 17261 [facility] THERAPY 4 [facility] TQS 1/> INC INC REGIONS EACH 15 MINUTES FILTER A7038 [facility] DISPBL 4 HOME HOME USED MEDICAL MEDICAL W/POS EQUIPME EQUIPME ARWAY PRESSURE DEVICE NASL A7034 [facility] [place] INTRFCE 4 HOME HOME POS ARWAY MEDICAL MEDICAL PRSS EQUIPME EQUIPME DEVC W/WO HEAD STRAP TUBING A7037 [facility] USED WITH 4 HOME HOME POSITIVE MEDICAL MEDICAL AIRWAY EQUIPME EQUIPME PRESSURE DEVICE HEADGEAR A7035 [facility] [place] USED 4 HOME HOME W/POSITIV MEDICAL MEDICAL E AIRWAY EQUIPME EQUIPME PRESSURE DEVICE HUMDIFIR E0562 [facility] HEATED 4 HOME HOME USED MEDICAL MEDICAL W/POS EQUIPME EQUIPME ARWAY PRESSURE DEVICE MANUAL 80879 [facility] THERAPY 4 [facility] TQS 1/> INC INC REGIONS EACH 15 MINUTES MANUAL 66341 [facility] THERAPY 4 [facility] TQS 1/> INC INC REGIONS EACH 15 MINUTES MANUAL 18215 [facility] THERAPY 4 [facility] TQS 1/> INC INC REGIONS EACH 15 MINUTES MANUAL 05029 [facility] THERAPY 4 [facility] TQS 1/> INC INC REGIONS EACH 15 MINUTES CV STRS 77965 [facility] TST 4 [facility] XERS&/OR INC INC RX CONT ECG TRCG ONLY TECHNETIU A9500 [facility] Wen TC-99M 4 [facility] SESTAMIBI INC INC DX PER STUDY DOSE UNCLASSIF C9399 [facility] IED DRUGS 4 [facility] OR INC INC BIOLOGICA LS MYOCARDIA 12620 [facility] Acharya SPECT 4 [facility] MULTIPLE INC INC STUDIES INJECTION J2785 [facility] 4 [facility] REGADENOS INC INC ON 0.1 MG CV STRS 27073 [facility] TST 4 [facility] RX CONT P ECG I&R ONLY MANUAL 51524 [facility] THERAPY 4 [facility] TQS 1/> INC INC REGIONS EACH 15 MINUTES O2 CONC 1 E1390 [facility] IRVIN 4 HOME HOME 85%/>02 MEDICAL MEDICAL CONC AT EQUIPME EQUIPME PRSC FLW RATE MANUAL 32750 [facility] THERAPY 4 [facility] TQS 1/> INC INC REGIONS EACH 15 MINUTES ECG 33924 [facility] ROUTINE 4 CHERYL DEYA ECG EMERGENCY W/LEAST PHYS 12 LDS I&R ONLY RADIOLOGI 07612 [place] TIFFANI C 4 MEDICAL ABDULKADIR EXAMINATI IMAGING ON CHEST ASS SINGLE VIEW FRONTAL MANUAL 06234 [facility] THERAPY 4 [facility] TQS 1/> INC INC REGIONS EACH 15 MINUTES PHYSICAL 26449 [facility] THERAPY 4 [facility] RE-EVALUA INC INC TION MANUAL 80973 [facility] THERAPY 4 [facility] TQS 1/> INC INC REGIONS EACH 15 MINUTES MANUAL 08250 [facility] REYNAON THERAPY 4 [facility] TQS 1/> INC INC REGIONS EACH 15 MINUTES MANUAL 83326 [facility] REYNAON THERAPY 4 [facility] TQS 1/> INC INC REGIONS EACH 15 MINUTES MANUAL 27304 [facility] REYNAON THERAPY 4 [facility] TQS 1/> INC INC REGIONS EACH 15 MINUTES DEBRIDEME 78157 [facility] NT OPEN 4 [facility] WOUND 20 INC INC SQ CM/< MANUAL 07916 [facility] REYNAON THERAPY 4 [facility] TQS 1/> INC INC REGIONS EACH 15 MINUTES MANUAL 91248 [facility] REYNAON THERAPY 4 [facility] TQS 1/> INC INC REGIONS EACH 15 MINUTES DEBRIDEME 36255 [facility] NT OPEN 4 [facility] WOUND 20 INC INC SQ CM/< DEBRIDEME 89064 [facility] NT OPEN 4 [facility] WOUND 20 INC INC SQ CM/< MANUAL 96581 [facility] REYNAON THERAPY 4 [facility] TQS 1/> INC INC REGIONS EACH 15 MINUTES MANUAL 88570 [facility] THERAPY 4 [facility] TQS 1/> INC INC REGIONS EACH 15 MINUTES DEBRIDEME 74304 [facility] NT OPEN 4 [facility] WOUND 20 INC INC SQ CM/< DEBRIDEME 25032 [facility] NT OPEN 4 [facility] 20 INC INC SQ CM/< MANUAL 48620 [facility] 1/> INC INC REGIONS EACH 15 MINUTES MANUAL 30293 [facility] 1/> INC INC REGIONS EACH 15 MINUTES DEBRIDEME 93392 [facility] NT [facility] 20 INC INC SQ CM/< PHYSICAL 87927 [facility] RE-EVALUA INC INC TION DEBRIDEME 95460 [facility] W[facility] 20 INC INC SQ CM/< MANUAL 35721 [facility] 1/> INC INC REGIONS EACH 15 MINUTES MANUAL 27720 [facility] T[facility] 1/> INC INC REGIONS EACH 15 MINUTES DEBRIDEME 00163 [facility] WOUND 20 INC INC SQ CM/< DEBRIDEME 15133 [facility] NT [facility] 20 INC INC SQ CM/< MANUAL 52264 [facility] 1/> INC INC REGIONS EACH 15 MINUTES MANUAL 94155 [facility] 1/> INC INC REGIONS EACH 15 MINUTES DEBRIDEME 04101 [facility] NT OPEN [facility] W[facility] 20 INC INC SQ CM/< DEBRIDEME 08671 [facility] NT [facility] W[facility] 20 INC INC SQ CM/< MANUAL 94365 [facility] 1/> INC INC REGIONS EACH 15 MINUTES MANUAL 44183 [facility] 1/> INC INC REGIONS EACH 15 MINUTES DEBRIDEME 53306 [facility] NT [facility] 20 INC INC SQ CM/< DEBRIDEME 51062 [facility] NT [facility] 20 INC INC SQ CM/< MANUAL 90602 [facility] 1/> INC INC REGIONS EACH 15 MINUTES MANUAL 61025 [facility] 1/> INC INC REGIONS EACH 15 MINUTES DEBRIDEME 15295 [facility] NT [facility] WOUND 20 INC INC SQ CM/< DEBRIDEME 15529 [facility] NT [facility] 20 INC INC SQ CM/< MANUAL 64201 [facility] 1/> INC INC REGIONS EACH 15 MINUTES MANUAL 21591 [facility] 1/> INC INC REGIONS EACH 15 MINUTES PHYSICAL 16332 [facility] EVALUATIO INC INC N DEBRIDEME 60134 [facility] NT [facility] W[facility] 20 INC INC SQ CM/< Encounters [facility]counter Start End Date Code Location Performer Type Date [facility] [facility] T OFFICE [id number] [facility] 5 5 [facility] VISIT INTERNAL 15 MED MINUTES PERIODIC [id number] [facility] PREVENTIV 5 5 [facility] E MED EST [facility]NAL PATIENT MED [id number] 5 [facility] T OFF[facility] 53000 [facility] OUT[facility] 5 5 [facility] T VISIT INTERNAL 25 MED MINUTES OFFICE 14095 [facility] 5 5 [facility] VISIT INTERNAL 15 MED MINUTES OFFICE 73222 [facility] 5 5 [place] T [facility]ISIT INTERNAL 25 MED MINUTES HOSPITAL UNIVERSIT - 5 5 Y INPATIENT HOSPITAL EMERGENCY 28531 [place] RUELAS 5 5 [facility] T VISIT P HIGH/URGE NT SEVERITY OFFICE 61371 [facility] OUT[facility] 5 5 [place] T VISIT INTERNAL 15 MED MINUTES OFFICE 39756 [facility] USERY AND OUTPATIEN 4 4 [place] T VISIT INTERNAL 15 MED MINUTES OFFICE 90915 [facility] CADE OUTPATIEN 4 4 PHYSICIAN JALEEL Tillman VISIT S GROUP 15 MINUTES [facility] - 4 4 [facility] OFFICE 36924 [facility] ALENASTDWIGHT OUTPATIEN 4 4 PHYSICIAN JALEEL Tillman NEW 45 S GROUP MINUTES OFFICE 07635 [facility] 4 4 [place] T VISIT INTERNAL 15 MED MINUTES OFFICE 08432 [facility] 4 4 [place] T VISIT INTERNAL 15 MED MINUTES [facility] - 4 4 [facility] - 4 4 [facility] - 4 4 [facility] EMERGENCY 09054 [facility] DEPT 4 4 CHERYL DEYA VISIT EMERGENCY HIGH PHYS [facility]VERITY& THREAT [facility] - 4 4 [facility] - 4 4 [facility]
--- OUTSIDE RECORDS SUMMARY | 2017-03-27 19:35 | External Medical Summary Rpt ---
Author Author , JASPAL SHAY Address Unknown Phone [email or web address] Care Team Providers Care Congressional Representative Name Role Phone [facility] Unavailable Unavailable [facility], [facility] Unavailable Unavailable [facility], Unavailable Unavailable [facility] AMARO JUN, AMARO JUN Unavailable Unavailable ALT[facility] [...] GEENA ASHLEY DEYA, ASHLEY Unavailable Unavailable DEYA [facility] Unavailable Unavailable INC, [facility] Unavailable Unavailable HOSPITAL P, [facility], Unavailable Unavailable [facility] FINE CYNTHIA, FINE CYNTHIA Unavailable Unavailable NOVA RHIANNON, NOVA RHIANNON Unavailable Unavailable [facility] Unavailable Unavailable [facility], [facility] NANDO JEEVAN, NANDO JEEVAN Unavailable Unavailable [facility] Unavailable Unavailable INTERNAL MED, [facility] INTER[facility] MED [facility], Unavailable Unavailable [facility] Un[facility] LYNDA RONAL, LYNDA RONAL Unavailable Unavailable [facility] JALEEL, Unavailable Unavailable [facility] Unavailable Unavailable [facility], [facility] Unavailable Unavailable [facility], [facility] Unavailable Unavailable [facility], [facility] CAROLYN JUN, CAROLYN Unavailable Unavailable JUN TYLER BENY CYNTHIA, Unavailable Unavailable TYLER BENY [facility], Unavailable Unavailable [facility], USERY AND Unavailable Unavailable VIKTORIA [...] OBSTRUCTION MED OR GANGRENE Z1231 ENCOUNTER 03-21-2015 [place] SCREEN[facility] MEDICAL MAMMO MALIG IMAGING ASS NEOPLASM BREAST Z1239 ENCOUNTER 03-21-2015 [facility] SCREENING INC MALIG NEOPLASM BREAST Z6842 BODY MASS 03-21-2015 [place] INDEX BMI VALLEY 45.0-49.9 INTERNAL ADULT MED 46528 OBSTRUCTIVE 03-06-2015 [facility]A MEDICAL EQUIPME 4019 UNSPECIFIED 12-20-2014 [facility] ESSENTIAL [facility] HYPERTENSIO INTERNAL N MED 496 CHRONIC 12-20-2014 [place] AIRWAY [place] OBSTRUCTION INTERNAL NEC MED 7822 LOCALIZED 12-20-2014 [place] SUPERFICIAL VALLEY SWELLING INTERNAL MASS OR MED LUMP V7231 ROUTINE 12-20-2014 [place] GYNECOLOGIC [facility] AL INTERNAL EXAMINATION MED 42111 MORBID 10-25-2014 [place] OBESITY [facility] INTERNAL MED 4571 OTHER 10-25-2014 [place] NONINFECTIO VALLEY US INTERNAL LYMPHEDEMA MED 7823 EDEMA 10-25-2014 [place] INTERNAL MED 2724 OTHER AND 08-26-2014 [place] UNSPECIFIED VALLEY INTERNAL HYPERLIPIDE MED [facility] 54795 UNSPECIFIED 08-26-2014 [place] DIASTOLIC [facility] HEART INTERNAL FAILURE MED 72989 UNSPECIFIED 08-26-2014 [place] SLEEP [place]LEY APNEA INTERNAL MED 7862 COUGH 08-26-2014 [place] INTERNAL MED 58306 ACUTE AND 07-26-2014 [facility] CHRONIC RESPIRATORY FAILURE 44243 MUSCLE 07-26-2014 [facility] WEAKNESS (GENERALIZE D) 7812 ABNORMALITY 07-26-2014 [facility] OF GAIT 2384 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 A VERA 7245 UNSPECIFIED 07-24-2014 [facility] BACKACHE SERV [facility] 97160 OTHER 07-21-2014 [facility] AL[facility]ATION SERV OF [facility] CONSCIOUSNE SS V5882 ENCOUNTER 07-20-2014 [facility] FITTING&ADJ SERV [facility] NON-VASCULA R CATHETER NEC 5119 UNSPECIFIED 07-19-2014 [facility] PLEURAL [facility] EFFUSION [facility] 5180 PULMONARY 07-19-2014 [facility] COLLAPSE [facility] 7869 OTH 07-19-2014 [facility] SYMPTOMS SERV INVOLVING [facility] RESPIRATORY SYSTEM&CHES T 514 PULMONARY 07-18-2014 [place] [facility] AND [facility] HYPOSTASIS 15331 ACUTE 07-18-2014 [place] [facility] FAILURE [facility] 91918 OBESITY 07-17-2014 [facility] HYPOVENTILA SERV TION [facility] SYNDROME 486 PNEUMONIA, 07-17-2014 [place] [facility] ORGANISM [facility] UNSPECIFIED [facility] 10442 OTHER 07-17-2014 [place] [facility] DISEASES OF SERV LUNG NOT [facility] ELSEWHERE CLASSIFIED 14152 OTHER 07-17-2014 [facility] NONSPECIFIC SERV ABNORMAL [facility] FINDING OF LUNG FIELD 4293 CARDIOMEGAL 07-16-2014 [facility] Y [facility] 87366 OTHER 07-14-2014 [facility] SPECIFIED SERV CARDIAC [facility] DYSRHYTHMIA S 2763 ALKALOSIS 07-09-2014 [facility] 4150 ACUTE COR 07-09-2014 [place] [facility] PULMONALE [facility] 2762 ACIDOSIS 07-08-2014 [facility] 7856 ENLARGEMENT 07-08-2014 [facility] OF LYMPH SERV NODES [facility] 586 UNSPECIFIED 07-07-2014 [facility] RE[facility] FAILURE [facility] 76408 SWELLING OF 07-07-2014 [facility] LIMB [facility] V4611 DEPENDENCE 07-07-2014 [facility] RESPIRATOR [facility] STATUS 4168 OTHER 07-06-2014 [facility] PULMONARY HEART DISEASES 4178 OTHER 07-06-2014 [facility] SPECIFIED SERV DISEASE OF [facility]OUNDATION PULMONARY CIRCULATION 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 [facility] 4242 TRICUSPID 07-06-2014 [facility] DISORDERS [facility] SPEC NONRHEUMATI C 4243 PULMONARY 07-06-2014 [facility] DISORDERS [facility] 09103 OBSTRUCTIVE 07-06-2014 [place] CHRONIC VALLEY BRONCHITIS INTERNAL WITH MED EXACERBATIO N 5849 ACUTE 07-06-2014 [place] [facility] FAILURE UNSPECIFIED 6826 CELLULITIS 07-06-2014 [facility] OF LEG EXCEPT FOOT 56047 SHORTNESS 07-06-2014 [facility] BREATH SERV [facility] 78968 NONSPECIFIC 07-06-2014 [facility] ABNORMAL SERV ELECTROCARD [facility] IOGRAM V8543 BODY MASS 07-04-2014 [place] INDEX [facility] 50.0-59.9 HOSPITAL P ADULT 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 53220 UNSPECIFIED 03-11-2014 [facility] ESOPHAGITIS GROUP 87656 UNS 03-11-2014 [facility] GASTRITIS&G PHYSICIANS ASTRODUODIT GROUP IS W/O MENTION HEMORR 49802 REFLUX 03-04-2014 [facility] ESOPHAGIT[facility] 5379 UNSPECIFIED 03-04-2014 [facility] DISORDER LLC OF STOMACH AND DUODENUM 85887 DYSPHAGIA 03-04-2014 [facility] UNSPECIFIED PHYSICIANS GROUP 33387 INCI HERNIA 02-23-2014 [facility] WITHOUT PHYSICIANS MENTION GROUP OBSTRUCTION /GANGRENE 5990 URINARY 11-06-2013 [facility] PHYSICIANS INFECTION LA SITE NOT SPECIFIED V571 OTHER 09-15-2013 [facility] THERAPY INC 4148 OTHER SPEC 09-09-2013 [facility] MEDICAL CHRONIC IMAGING ASS ISCHEMIC HEART DISEASE 73294 CHEST PAIN 09-09-2013 [facility] P 21373 OTHER CHEST 09-02-2013 [facility] Procedures Procedure DOS Code Location Performer Comment O2 CONC 1 E1390 [facility] [place] 5 HOME HOME 85%/>02 MEDICAL MEDICAL CONC AT [facility] FL[facility] RATE COLLECTIO 64580 [facility] N VENOUS 5 [facility] BLOOD INC INC VENIPUNCT URE COMPREHEN 94962 [facility] SIVE 5 [facility] METABOLIC INC INC PANEL BLOOD 30599 [facility] COUNT 5 [facility] COMPLETE INC INC AUTO&AUTO DIFRNTL WBC LIPID 88171 [facility] PANEL 5 [facility] INC INC COMPUTER- 36782 [place] TIFFANI AIDED 5 MEDICAL ABDULKADIR DETECTION IMAGING ASS SCREENING MAMMOGRAP HY SCREENING G0202 [facility] 5 MEDICAL ABDULKADIR MAMMOGRAP IMAGING HY EH ASS INCL CAD WHEN PERFORMD O2 CONC 1 E1390 [facility] [place] 5 HOME HOME 85%/>02 MEDICAL MEDICAL CONC AT EQUIPME EQUIPME [facility] FLW RATE O2 CONC 1 E1390 [facility] [place] 5 HOME HOME 85%/>02 MEDICAL MEDICAL CONC AT EQUIPME EQUIPME [facility] FLW RATE O2 CONC 1 E1390 [facility] [place] 5 HOME HOME 85%/>02 MEDICAL MEDICAL CONC AT EQUIPME EQUIPME PRS FLW RATE URNLS DIP 86422 [place] [facility] 5 VALLEY CYNTHIA STICK/TAB INTERNAL LET RGNT MED NON-AUTO W/O MICRSCP O2 CONC 1 E1390 [facility] [place] 5 HOME HOME 85%/>02 MEDICAL MEDICAL CONC AT EQUIPME EQUIPME PRS FLW RATE O2 CONC 1 E1390 [facility] [place] 5 HOME HOME 85%/>02 MEDICAL MEDICAL CONC AT EQUIPME EQUIPME PRS FLW RATE BASIC 59560 [facility] METABOLIC 5 [facility] PANEL INC INC CALCIUM TOTAL COLLECTIO 43235 [facility] N VENOUS 5 [facility] BLOOD INC INC VENIPUNCT URE O2 CONC 1 E1390 [facility] [place] 5 HOME HOME 85%/>02 MEDICAL MEDICAL CONC AT EQUIPME EQUIPME PRS FLW RATE O2 CONC 1 E1390 [facility] [place] 5 HOME HOME 85%/>02 MEDICAL MEDICAL CONC AT EQUIPME EQUIPME PRSC FLW RATE COMPREHEN 49285 COMBINED COMBINED SIVE 5 PHYSICIAN PHYSICIAN METABOLIC S LA S LA PANEL LIPID 69140 COMBINED COMBINED PANEL 5 PHYSICIAN PHYSICIAN S LA S LA O2 CONC 1 E1390 [facility] [place] 5 HOME HOME 85%/>02 MEDICAL MEDICAL CONC AT EQUIPME EQUIPME PRS FLW RATE WALKER E0143 [facility] 5 WHEELED ADJUSTABL E/FIXED HEIGHT SBSQ 14344 [facility] 5 MEDICAL YATACO CARE/DAY SERV ANG 25 FOUNDATIO MINUTES N SBSQ [address] [facility] 5 MEDICAL ROL CARE/DAY SERV 25 FOUNDATIO MINUTES N SBSQ [address] [facility] 5 MEDICAL ROL CARE/DAY SERV 35 FOUNDATIO MINUTES N RADIOLOGI 56[address] [facility] 5 MEDICAL DEYA EXAMINATI SERV ON CHEST FOUNDATIO SINGLE N VIEW FRONTAL RADIOLOGI [address] [facility] 5 MEDICAL EXAMINATI SERV ON CHEST FOUNDATIO SINGLE N VIEW FRONTAL SBSQ [address] [facility] 5 MEDICAL ROL CARE/DAY SERV 35 FOUNDATIO MINUTES N SBSQ [address] [facility] 5 MEDICAL ROL CARE/DAY SERV 35 FOUNDATIO MINUTES N RADIOLOGI 01145 [facility] MEDICAL AYA MAR EXAMINATI SERV ON CHEST FOUNDATIO SINGLE N VIEW FRONTAL RADIOLOGI 95050 [place] [facility] 5 MEDICAL DEYA EXAMINATI SERV ON CHEST FOUNDATIO SINGLE N VIEW FRONTAL SBSQ [address] [facility] 5 MEDICAL ROL CARE/DAY SERV 35 FOUNDATIO MINUTES N RADIOLOGI 88108 [place] [facility] 5 MEDICAL EXAMINATI SERV ON CHEST FOUNDATIO SINGLE N VIEW FRONTAL CRITICAL 99998 [facility] 5 MEDICAL Y-HAND ILL/INJUR SERV NICKI ED FOUNDATIO PATIENT N INIT 30-74 MIN CRITICAL 75050 [place] [facility] 5 MEDICAL Y-HAND ILL/INJUR SERV NICKI ED FOUNDATIO PATIENT N INIT 30-74 MIN RADIOLOGI 22932 [facility] 5 MEDICAL EXAMINATI SERV ON CHEST FOUNDATIO SINGLE N VIEW FRONTAL RADIOLOGI 20827 [place] [facility] C 5 MEDICAL DEYA EXAMINATI SERV ON CHEST FOUNDATIO SINGLE N VIEW FRONTAL CRITICAL 83552 [facility] 5 MEDICAL ILL/INJUR SERV ED FOUNDATIO PATIENT N INIT 30-74 MIN RADIOLOGI 06894 [place] [facility] 5 MEDICAL AYA MAR EXAMINATI SERV ON CHEST FOUNDATIO SINGLE N VIEW FRONTAL SBSQ 24750 [place] [facility] 5 MEDICAL CARE/DAY SERV 35 FOUNDATIO MINUTES N ECG 68535 [place] [facility] ROUTINE 5 MEDICAL ECG SERV W/LEAST FOUNDATIO 12 LDS N I&R ONLY RADIOLOGI 44384 [place] [facility] 5 MEDICAL EXAMINATI SERV ON CHEST FOUNDATIO SINGLE N VIEW FRONTAL CRITICAL 56281 [place] [facility] 5 MEDICAL ILL/INJUR SERV ED FOUNDATIO PATIENT N INIT 30-74 MIN SBSQ 78764 [place] [facility] 5 MEDICAL CARE/DAY SERV 35 FOUNDATIO MINUTES N SBSQ 40495 [place] [facility] 5 MEDICAL CARE/DAY SERV 35 FOUNDATIO MINUTES N RADIOLOGI 57063 [place] [facility] 5 MEDICAL EXAMINATI SERV ON CHEST FOUNDATIO SINGLE N VIEW FRONTAL RADIOLOGI 00922 [place] NANDO JEEVAN C 5 MEDICAL EXAMINATI SERV ON CHEST FOUNDATIO SINGLE N VIEW FRONTAL CRITICAL 44157 [place] [facility] 5 MEDICAL BENY ILL/INJUR SERV CYNTHIA ED FOUNDATIO PATIENT N INIT 30-74 MIN CRITICAL 40342 [place] [facility] CARE 5 MEDICAL BENY ILL/INJUR SERV CYNTHIA ED FOUNDATIO PATIENT N INIT 30-74 MIN RADEX 40075 [place] CAROLYN ABDOMEN 1 5 MEDICAL JUN SERV ANTEROPOS FOUNDATIO TERIOR N VIEW RADIOLOGI 66577 [place] JOSE ANGELK 5 MEDICAL AYA MAR EXAMINATI SERV ON CHEST FOUNDATIO SINGLE N VIEW FRONTAL CRITICAL 82884 [place] [facility] 5 MEDICAL ILL/INJUR SERV ED FOUNDATIO PATIENT N INIT 30-74 MIN CRITICAL 94787 [place] [facility] 5 MEDICAL ILL/INJUR SERV ED FOUNDATIO PATIENT N INIT 30-74 MIN RADIOLOGI 17787 [place] [facility] 5 MEDICAL EXAMINATI SERV ON CHEST FOUNDATIO SINGLE N VIEW FRONTAL RADIOLOGI 55147 [place] [facility] 5 MEDICAL AYA MAR EXAMINATI SERV ON CHEST FOUNDATIO SINGLE N VIEW FRONTAL CRITICAL 78424 [place] [facility] 5 MEDICAL ILL/INJUR SERV ED FOUNDATIO PATIENT N INIT 30-74 MIN DUP-SCAN 67713 [place] [facility] 5 MEDICAL JEEVAN COMPLETE SERV FOUNDATIO BILATERAL N STUDY CRITICAL 26334 [place] [facility] 5 MEDICAL ILL/INJUR SERV ED FOUNDATIO PATIENT N INIT 30-74 MIN O2 CONC 1 E1390 [facility] [place] 5 HOME HOME 85%/>02 MEDICAL MEDICAL CONC AT EQUIPME EQUIPME PRSC FLW RATE RADIOLOGI 04888 [place] F[facility] CYNTHIA C 5 MEDICAL EXAMINATI SERV ON CHEST FOUNDATIO SINGLE N VIEW FRONTAL ECHO 31288 [place] SONDRA BARAHONA TTHR R-T 5 MEDICAL 2D SERV W/WOM-MOD FOUNDATIO E COMPL N SPEC&COLR D RADEX 50161 [place] DISANTIS ABDOMEN 1 5 MEDICAL GEENA SERV ANTEROPOS [facility]OUNDATIO [facility] 95979 [facility] 5 VALLEY DAY INTERNAL MANAGEMEN MED T 30 MIN/< AMB A0431 AIR AIR SERVICE 5 METHODS METHODS CONVNTION [facility] AIR SRVC TRANSPORT [address] ECG 96174 [place] LYNDA RONAL ROUTINE 5 MEDICAL ECG SERV W/LEAST FOUNDATIO 12 LDS N I&R ONLY ROTARY A0436 AIR AIR WING AIR 5 METHODS [facility] PER STATUTE MI[facility] 57909 [facility] ROUTINE 5 [facility] W/LEAST P 12 LDS I&R ONLY O2 CONC 1 E1390 [facility] [place] 4 HOME HOME 85%/>02 MEDICAL MEDICAL CONC AT EQUIPME EQUIPME [facility] FLW RATE O2 CONC 1 E1390 [facility] [place] 4 HOME HOME 85%/>02 MEDICAL MEDICAL CONC AT EQUIPME EQUIPME [facility] FLW RATE FULL FACE A7030 [facility] [place] [...] 85%/>02 MEDICAL MEDICAL CONC AT EQUIPME EQUIPME [facility] FLW RATE O2 CONC 1 E1390 [facility] [place] 4 HOME HOME 85%/>02 MEDICAL MEDICAL CONC AT EQUIPME EQUIPME [facility] [address] [facility] INFUSION 4 [facility] THERAPY INC INC PROPHYLAX IS/[place] [address] [facility], SURG 4 [facility] PATH[facility] GROSS&DEYA ROSCOPIC EXAM EGD 57808 [facility] SCHULSTAD TRANSORAL 4 PHYSICIAN JALEEL BIOPSY S GROUP SINGLE/MU LTIPLE SPECIAL 71414 [facility], STAIN 4 [facility] 1 MICROORGA NISMS I&R SPCL STN 55286 [facility], 2 I&R 4 [facility] EXCPT MICROORG/ ENZYME/IM CYT O2 CONC [...] AT EQUIPME EQUIPME PRSC FLW RATE CULTURE 39708 COMBINED COMBINED BACTERIAL 4 PHYSICIAN PHYSICIAN S LA S LA QUANTTATI VE COLONY COUNT URINE O2 CONC 1 E1390 [facility] [place] 4 HOME HOME 85%/>02 MEDICAL MEDICAL CONC AT EQUIPME EQUIPME PRSC FLW RATE LIPID 18318 [facility] PANEL 4 [place] [address] [facility] THYROID 4 [facility] STIMULATI INC INC NG HORMONE TSH COMPREHEN 91755 [facility] SIVE 4 [facility] METABOLIC INC INC PANEL BLOOD 45784 [facility] COUNT 4 [facility] COMPLETE INC INC AUTO&AUTO DIFRNTL WBC O2 CONC 1 E1390 [facility] [place] 4 HOME HOME 85%/>02 MEDICAL MEDICAL CONC AT EQUIPME EQUIPME PRSC FLW RATE MANUAL 53389 [facility] THERAPY 4 [facility] TQS 1/> INC INC REGIONS EACH 15 MINUTES MANUAL 44867 [facility] THERAPY 4 [facility] MEM [...] W/POS EQUIPME EQUIPME ARWAY PRESSURE DEVICE MANUAL 86727 [facility] THERAPY 4 [facility] TQS 1/> INC INC REGIONS EACH 15 MINUTES MANUAL 95317 [facility] THERAPY 4 [facility] TQS 1/> INC INC REGIONS EACH 15 MINUTES MANUAL 53511 [facility] THERAPY 4 [facility] TQS 1/> INC INC REGIONS EACH 15 MINUTES MANUAL 15965 [facility] THERAPY 4 [facility] TQS 1/> INC INC REGIONS EACH 15 MINUTES CV STRS 33817 [facility] TST 4 [facility] XERS&/OR INC INC RX CONT ECG TRCG ONLY TECHNETIU A9500 [facility] Wen TC-99M 4 [facility] SESTAMIBI INC INC DX PER STUDY DOSE UNCLASSIF C9399 [facility] IED DRUGS 4 [facility] OR INC INC BIOLOGICA LS MYOCARDIA 80669 [facility] Acharya SPECT 4 [facility] MULTIPLE INC INC STUDIES INJECTION J2785 [facility]ONG 4 [facility] REGADENOS INC INC ON 0.1 MG CV STRS 56173 [facility] P[facility] TST 4 [facility] RX CONT P ECG I&R ONLY MANUAL 79047 [facility] THERAPY 4 [facility] TQS 1/> INC INC REGIONS EACH 15 MINUTES O2 CONC 1 E1390 [facility] IRVIN 4 HOME HOME 85%/>02 MEDICAL MEDICAL CONC AT EQUIPME EQUIPME PRSC FLW RATE MANUAL 89763 [facility] THERAPY 4 [facility] TQS 1/> INC INC REGIONS EACH 15 MINUTES ECG 26116 [facility] ROUTINE 4 CHERYL DEYA ECG EMERGENCY W/LEAST PHYS 12 LDS I&R ONLY RADIOLOGI 05115 [place] TIFFANI C 4 MEDICAL ABDULKADIR EXAMINATI IMAGING ON CHEST ASS SINGLE VIEW FRONTAL MANUAL 91533 [facility] THERAPY 4 [facility] TQS 1/> INC INC REGIONS EACH 15 MINUTES PHYSICAL 92511 [facility] THERAPY 4 [facility] RE-EVALUA INC INC TION MANUAL 37172 [facility] THERAPY 4 [facility] TQS 1/> INC INC REGIONS EACH 15 MINUTES MANUAL 38828 [facility] REYNAON THERAPY 4 [facility] TQS 1/> INC INC REGIONS EACH 15 MINUTES MANUAL 37312 [facility] REYNAON THERAPY 4 [facility] TQS 1/> INC INC REGIONS EACH 15 MINUTES MANUAL 00091 [facility] REYNAON THERAPY 4 [facility] TQS 1/> INC INC REGIONS EACH 15 MINUTES DEBRIDEME 48989 [facility] NT OPEN 4 [facility] WOUND 20 INC INC SQ CM/< MANUAL 86157 [facility] REYNAON THERAPY 4 [facility] TQS 1/> INC INC REGIONS EACH 15 MINUTES MANUAL 57200 [facility] REYNAON THERAPY 4 [facility] TQS 1/> INC INC REGIONS EACH 15 MINUTES DEBRIDEME 26090 [facility] NT OPEN 4 [facility] WOUND 20 INC INC SQ CM/< DEBRIDEME 15789 [facility] NT OPEN 4 [facility] WOUND 20 INC INC SQ CM/< MANUAL 54635 [facility] REYNAON THERAPY 4 [facility] TQS 1/> INC INC REGIONS EACH 15 MINUTES MANUAL 31165 [facility] THERAPY 4 [facility] TQS 1/> INC INC REGIONS EACH 15 MINUTES DEBRIDEME 82752 [facility] NT OPEN 4 [facility] WOUND 20 INC INC SQ CM/< DEBRIDEME 71209 [facility] NT OPEN 4 [facility] WOUND 20 INC INC SQ CM/< MANUAL 54959 [facility] THERAPY 4 [facility] TQS 1/> INC INC REGIONS EACH 15 MINUTES MANUAL 87310 [facility] THERAPY 4 [facility] TQS 1/> INC INC REGIONS EACH 15 MINUTES DEBRIDEME 19745 [facility] NT OPEN 4 [facility] WOUND 20 INC INC SQ CM/< PHYSICAL 71902 [facility] THERAPY 4 [facility] RE-EVALUA INC INC TION DEBRIDEME 62635 [facility] NT OPEN 4 [facility] WOUND 20 INC INC SQ CM/< MANUAL 70924 [facility] THERAPY 4 [facility] TQS 1/> INC INC REGIONS EACH 15 MINUTES MANUAL 22674 [facility] THERAPY 4 [facility] TQS 1/> INC INC REGIONS EACH 15 MINUTES DEBRIDEME 06350 [facility] NT OPEN 4 [facility] WOUND 20 INC INC SQ CM/< DEBRIDEME 46803 [facility] NT OPEN 4 [facility] WOUND 20 INC INC SQ CM/< MANUAL 98479 [facility] THERAPY 4 [facility] TQS 1/> INC INC REGIONS EACH 15 MINUTES MANUAL 67015 [facility] THERAPY 4 [facility] TQS 1/> INC INC REGIONS EACH 15 MINUTES DEBRIDEME 68125 [facility] NT OPEN 4 [facility] WOUND 20 INC INC SQ CM/< DEBRIDEME 46240 [facility] NT OPEN 4 [facility] WOUND 20 INC INC SQ CM/< MANUAL 46651 [facility] THERAPY 4 [facility] TQS 1/> INC INC REGIONS EACH 15 MINUTES MANUAL 75559 [facility] THERAPY 4 [facility] TQS 1/> INC INC REGIONS EACH 15 MINUTES DEBRIDEME 20120 [facility] NT OPEN 4 [facility] WOUND 20 INC INC SQ CM/< DEBRIDEME 98098 [facility] NT OPEN 4 [facility] WOUND 20 INC INC SQ CM/< MANUAL 36087 [facility] THERAPY 4 [facility] TQS 1/> INC INC REGIONS EACH 15 MINUTES MANUAL 69270 [facility] THERAPY 4 [facility] TQS 1/> INC INC REGIONS EACH 15 MINUTES DEBRIDEME 37690 [facility] NT OPEN 4 [facility] WOUND 20 INC INC SQ CM/< DEBRIDEME 16822 [facility] NT OPEN 4 [facility] WOUND 20 INC INC SQ CM/< MANUAL 73112 [facility] THERAPY 4 [facility] TQS 1/> INC INC REGIONS EACH 15 MINUTES MANUAL 80402 [facility] THERAPY 4 [facility] TQS 1/> INC INC REGIONS EACH 15 MINUTES PHYSICAL 39767 [facility] THERAPY 4 [facility] EVALUATIO INC INC N DEBRIDEME 76257 [facility] NT OPEN 4 [facility] WOUND 20 INC INC SQ CM/< Encounters Encounter Start End Date Code Location Performer Type Date [facility] - 5 5 [facility] OUTPATIEN [facility] T OFFICE [id number] [facility] [facility] 5 5 [facility] VISIT [facility]NAL 15 MED MINUT[facility] PERIODIC 82702 [place] [facility] PREVENTIV 5 5 [facility] E MED EST [id number] T OFFICE 92364 [place] [facility] [facility] 5 5 [facility] T VISIT INTERNAL 25 MED MINUTES OFFICE 77423 [place] [facility] OUT[facility] 5 5 [facility] T VISIT INTERNAL 15 MED MINUTES OFFICE 40639 [facility] [facility] 5 5 [facility] T VISIT INTERNAL 25 MED MINUTES HOSPITAL UNIVERSIT - 5 5 Y INPATIENT [facility]PITAL EMERGENCY [address] [place] [address] [facility] T VISIT P HIGH/URGE NT SEVERITY OFFICE 64042 [facility] OUT[facility] 5 5 [facility] T VISIT INTERNAL 15 MED MINUTES OFFICE 82023 [facility] AND OUTPATIEN 4 4 [facility] T VISIT INTERNAL 15 MED MINUTES OFFICE 03311 [facility] CADE OUTPATIEN 4 4 PHYSICIAN JALEEL Tillman VISIT S GROUP 15 MINUTES [facility] - 4 4 [facility] OFFICE 16865 [facility] 4 4 PHYSICIAN JALEEL Tillman NEW 45 S GROUP MINUTES OFFICE 35763 [facility] OUT[facility] 4 4 [facility] CYNTHIA T VISIT INTERNAL 15 MED MINUTES OFFICE 93613 [facility] OUT[facility] 4 4 [facility] T VISIT INTERNAL 15 MED MINUTES [facility] - 4 4 [facility] - 4 4 [facility] - 4 4 [facility] EMERGENCY 34827 [facility] DEPT 4 4 CHERYL DEYA VISIT EMERGENCY HIGH PHYS [facility]VERITY& THREAT [facility] - 4 4 [facility] 4 4 [facility] - 4 4 [facility]
--- OUTSIDE RECORDS SUMMARY | 2017-03-27 19:36 | External Medical Summary Rpt ---
Author Author [employer], [employer] Organization [employer] Address Unknown Phone Unavailable Results CBC W Auto Differential panel in Blood Observa Value Referen Units Interpr Notes Date tion ce etation Range Basophils 0 - 0.2 K/MM3 Normal No Sep 30 informati 2017 7:10 [#/volume on in PM ] in source Blood by data Automated count Basophils 0.1 - 2.0 % Normal No Sep 30 /100 informati 2017 7:10 leukocyte on in PM s in source Blood by data Automated count Eosinophi 0.0 - 0.4 K/mm3 Normal No Sep 30 ls informati 2017 7:10 [#/volume on in PM ] in source Blood by data Automated count Eosinophi 0.1 - % Normal No Sep 30 ls/100 12.0 informati 2017 7:10 leukocyte on in PM s in source Blood by data Automated count Granulocy 1.8 - 7.8 K/mm3 High No Sep 30 bart informati 2017 7:10 [#/volume on in PM ] in source Blood by data Automated count Granulocy 37.0 - % Normal No Sep 30 bart/100 80.0 informati 2017 7:10 leukocyte on in PM s in source Blood by data Automated count Hematocri 37.0 - % Normal No Sep 30 t [Volume 47.0 informati 2017 7:10 on in PM Fraction] source of Blood data Hemoglobi 12.2 - g/dL Low No Sep 30 n 16.2 informati 2017 7:10 [Mass/vol on in PM ume] in source Blood data Lymphocyt 0.7 - 4.5 K/mm3 Normal No Sep 30 es informati 2017 7:10 [#/volume on in PM ] in source Unspecifi data ed specimen by Automated count Lymphocyt 10 - 50.0 % Normal No Sep 30 es informati 2017 7:10 [#/volume on in PM ] in source Unspecifi data ed specimen by Automated count Erythrocy 27 - 31.2 pg Normal No Sep 30 te mean informati 2017 7:10 corpuscul on in PM ar source hemoglobi data n [Entitic mass] Erythrocy 31.8 - g/dl Low No Sep 30 te mean 35.4 informati 2017 7:10 corpuscul on in PM ar source hemoglobi data n concentra tion [Mass/vol ume] by Automated count Erythrocy 82.2 - fl Normal No Sep 30 te mean 97.8 informati 2016 7:10 corpuscul on in PM ar volume source [Entitic data volume] by Automated count Monocytes 0.1 - 1.0 K/mm3 Normal No Sep 30 informati 2016 7:10 [#/volume on in PM ] in source Blood by data Automated count Monocytes 1.7 - 9.3 % Normal No Sep 30 /100 informati 2017 7:10 leukocyte on in PM s in source Blood by data Automated count Platelet 7.4 - fl Low No Sep 30 mean 10.4 informati 2017 7:10 volume on in PM [Entitic source volume] data in Blood by Automated count Platelets 142 - 424 K/mm3 No No Sep 30 informati informati 2017 7:10 [#/volume on in on in PM ] in source source Blood data data Erythrocy 4.2 - 5.4 M/mm3 Low No Sep 30 bart informati 2017 7:10 [#/volume on in PM ] in source Amniotic data fluid Erythrocy 11.5 - % Normal No Sep 30 te 17.5 informati 2016 7:10 distribut on in PM ion width source [Entitic data volume] by Automated count Leukocyte 4.8 - K/MM3 High No Sep 30 s 10.8 informati 2016 7:10 [#/volume on in PM ] in source Blood data Hemoglobin & Hematocrit panel in Blood Observa Value Referen Units Interpr Notes Date tion ce etation Range Hematocri 37.0 - % Low No Feb 13 t [Volume 47.0 informati 2017 1:45 on in PM Fraction] source of Blood data Hemoglobi 12.2 - g/dL Low No Feb 13 n 16.2 informati 2017 1:45 [Mass/vol on in PM ume] in source Blood data Hemoglobin & Hematocrit panel in Blood Observa Value Referen Units Interpr Notes Date tion ce etation Range Hematocri 37.0 - % Low No Feb 11 t [Volume 47.0 informati 2017 on in 10:58 AM Fraction] source of Blood data Hemoglobi 12.2 - g/dL Low No Feb 11 n 16.2 informati 2016 [Mass/vol on in 10:58 AM ume] in source Blood data Comprehensive metabolic 2000 panel in Serum or Plasma Observa Value Referen Units Interpr Notes Date tion ce etation Range Albumin/G 1.1 - 1.8 No Low No Feb 08 lobulin informati informati 2016 5:30 [Mass on in on in PM ratio] in source source Serum or data data Plasma Albumin 3.4 - 5.0 gm/dL Low No Feb 08 [Mass/vol informati 2016 5:30 ume] in on in PM Serum or source Plasma data Alkaline 46 - 116 U/L High No Feb 08 phosphata informati 2016 5:30 se on in PM [Enzymati source c data activity/ volume] in Serum or Plasma Bilirubin 0.2 - 1.0 mg/dL Normal No Feb 08 .total informati 2016 5:30 [Mass/vol on in PM ume] in source Serum or data Plasma Urea 7 - 18 mg/dL Normal No Feb 08 nitrogen informati 2016 5:30 [Mass/vol on in PM ume] in source Serum or data Plasma Calcium 8.5 - mg/dL Normal No Feb 08 [Mass/vol 10.1 informati 2016 5:30 ume] in on in PM Serum or source Plasma data Chloride 98 - 107 mmoL/L Normal No Feb 08 [Moles/vo informati 2016 5:30 lume] in on in PM Serum or source Plasma data Carbon 21.0 - mmoL/L Normal No Feb 08 dioxide, 32.0 informati 2016 5:30 total on in PM [Moles/vo source lume] in data Serum or Plasma Creatinin 0.55 - mg/dL High No Feb 08 e 1.02 informati 2016 5:30 [Mass/vol on in PM ume] in source Serum or data Plasma Creatinin 50 - 200 ML/MIN Normal No Feb 08 e renal informati 2016 5:30 clearance on in PM source predicted data by Cockcroft -Gault formula Estimated 59- ML/MIN Low REFERENCE Feb 08 RANGE: 2017 5:30 glomerula >60 PM r ML/MIN/1. filtratio 73 SQUARE n rate METERSIf (GF this patient is -A merican, then multiply theresult by 1.210. Globulin 1.3 - 3.2 gm/dL High No Feb 08 [Mass/vol informati 2016 5:30 ume] in on in PM Serum source data Glucose 74 - 106 mg/dL High No Feb 08 [Mass/vol informati 2016 5:30 ume] in on in PM Serum or source Plasma data Potassium 3.5 - 5.1 mmoL/L Normal No Feb 082016 5:30 [Moles/vo on in PM lume] in source Serum or data Plasma Sodium 136 - 145 mmoL/L Normal No Feb 08 [Moles/vo informati 2016 5:30 lume] in on in PM Serum or source Plasma data Aspartate 15 - 37 U/L Normal No Feb 08 inform2016 5:30 aminotran on in PM sferase source [Enzymati data c activity/ volume] in Serum or Plasma Alanine 12 - 78 U/L Normal No Feb 08 aminotran 2016 5:30 sferase on in PM [Enzymati source c data activity/ volume] in Serum or Plasma Protein 6.4 - 8.2 gm/dL Normal No Feb 08 [Mass/vol informati 2016 5:30 ume] in on in PM Serum or source Plasma data CBC W Auto Differential panel in Blood Observa Value Referen Units Interpr Notes Date tion ce etation Range Basophils 0 - 0.2 K/MM3 Normal No Feb 082016 5:30 [#/volume on in PM ] in source Blood by data Automated count Basophils 0.1 - 2.0 % Normal No Feb 08 inform2016 5:30 leukocyte on in PM s in source Blood by data Automated count Eosinophi 0.0 - 0.4 K/mm3 Normal No Feb 08 ls ati 2016 5:30 [#/volume on in PM ] in source Blood by data Automated count Eosinophi 0.1 - % Normal No Feb 08 ls/100 12.0 informati 2016 5:30 leukocyte on in PM s in source Blood by data Automated count Granulocy 1.8 - 7.8 K/mm3 High No Feb 08 bart 2016 5:30 [#/volume on in PM ] in source Blood by data Automated count Granulocy 37.0 - % High No Feb 08 bart/100 80.0 informati 2016 5:30 leukocyte on in PM s in source Blood by data Automated count Hematocri 37.0 - % Normal No Feb 08 t [Volume 47.0 informati 2016 5:30 on in PM Fraction] source of Blood data Hemoglobi 12.2 - g/dL Normal No Feb 08 n 16.2 informati 2016 5:30 [Mass/vol on in PM ume] in source Blood data Lymphocyt 0.7 - 4.5 K/mm3 Normal No Feb 08 es informati 2016 5:30 [#/volume on in PM ] in source Unspecifi data ed specimen by Automated count Lymphocyt 10 - 50.0 % Normal No Feb 08 es informati 2016 5:30 [#/volume on in PM ] in source Unspecifi data ed specimen by Automated count Erythrocy 27 - 31.2 pg Normal No Feb 08 te mean informati 2016 5:30 corpuscul on in PM ar source hemoglobi data n [Entitic mass] Erythrocy 31.8 - g/dl Normal No Feb 08 te mean 35.4 informati 2016 5:30 corpuscul on in PM ar source hemoglobi data n concentra tion [Mass/vol ume] by Automated count Erythrocy 82.2 - fl Normal No Feb 08 te mean 97.8 informati 2017 5:30 corpuscul on in PM ar volume source [Entitic data volume] by Automated count Monocytes 0.1 - 1.0 K/mm3 Normal No Feb 08 informati 2017 5:30 [#/volume on in PM ] in source Blood by data Automated count Monocytes 1.7 - 9.3 % Normal No Feb 08 /100 informati 2017 5:30 leukocyte on in PM s in source Blood by data Automated count Platelet 7.4 - fl Normal No Feb 08 mean 10.4 informati 2017 5:30 volume on in PM [Entitic source volume] data in Blood by Automated count Platelets 142 - 424 K/mm3 Normal No Feb 08 informati 2017 5:30 [#/volume on in PM ] in source Blood data Erythrocy 4.2 - 5.4 M/mm3 Normal No Feb 08 bart informati 2017 5:30 [#/volume on in PM ] in source Amniotic data fluid Erythrocy 11.5 - % Normal No Feb 08 te 17.5 informati 2016 5:30 distribut on in PM ion width source [Entitic data volume] by Automated count Leukocyte 4.8 - K/MM3 High No Feb 08 s 10.8 informati 2017 5:30 [#/volume on in PM ] in source Blood data DIARRHEA PANEL,PCR Observa Value Referen Units Interpr Notes Date tion ce etation Range Adenovi NOT NOT No No No Feb 08 chi DETECTE DETECTE informa informa informa 2017 40+41 D tion in tion in tion in 5:21 PM Ag source source source [Presen data data data ce] in Stool Aeromon NOT NOT No No No Feb 08 as DETECTE DETECTE informa informa informa 2017 salmoni D tion in tion in tion in 5:21 PM michelle source source source [Presen data data data ce] in Unspeci fied specime n Astrovi NOT NOT No No No Feb 08 chi DETECTE DETECTE informa informa informa 2017 [Presen D tion in tion in tion in 5:21 PM ce] in source source source Stool data data data by Electro n microsc opy Campylo NOT NOT No No No Feb 08 bacter DETECTE DETECTE informa informa informa 2017 sp Ab D tion in tion in tion in 5:21 PM [Presen source source source ce] in data data data Serum Clostri NOT NOT No No No Feb 08 dium DETECTE DETECTE informa informa informa 2017 diffici D tion in tion in tion in 5:21 PM le source source source toxin data data data A+B [Presen ce] in Stool Cryptos NOT NOT No No No Feb 08 poridiu DETECTE DETECTE informa informa informa 2017 m sp Ag D tion in tion in tion in 5:21 PM source source source [Presen data data data ce] in Unspeci fied specime n Cyclosp NOT NOT No No No Feb 08 ora DETECTE DETECTE informa informa informa 2017 cayetan D tion in tion in tion in 5:21 PM sam source source source [Presen data data data ce] in Unspeci fied specime n Escheri NOT NOT No No No Feb 08 job DETECTE DETECTE informa informa informa 2017 coli D tion in tion in tion in 5:21 PM [Presen source source source ce] in data data data Unspeci fied specime n by Culture FDA method Escheri DETECTE NOT No Abnorma No Feb 08 job D DETECTE informa l informa 2017 coli tion in tion in 5:21 PM [Presen source source ce] in data data Unspeci fied specime n by Culture FDA method Escheri NOT NOT No No No Feb 08 job DETECTE DETECTE informa informa informa 2017 coli D tion in tion in tion in 5:21 PM Shiga-l source source source dalila data data data toxin 1 assa Escheri NOT NOT No No No Feb 08 job DETECTE DETECTE informa informa informa 2017 coli D tion in tion in tion in 5:21 PM [id number] source source source data data data [Presen ce] in Stool by Organis m specifi c culture Entamoe NOT NOT No No No Feb 08 ba DETECTE DETECTE informa informa informa 2017 histoly D tion in tion in tion in 5:21 PM evens source source source [Presen data data data ce] in Stool by Trichro me stain Giardia NOT NOT No No No Feb 08 DETECTE DETECTE informa informa informa 2017 lamblia D tion in tion in tion in 5:21 PM Ag source source source [Presen data data data ce] in Stool Norovir NOT NOT No No No Feb 08 us Ag DETECTE DETECTE informa informa informa 2016 [Presen D tion in tion in tion in 5:21 PM ce] in source source source Stool data data data Stool NOT NOT No No No Feb 08 Plesiom DETECTE DETECTE informa informa informa 2017 onas D tion in tion in tion in 5:21 PM shigell source source source oides data data data DNA detec Rotavir NOT NOT No No No Feb 08 us RNA DETECTE DETECTE informa informa informa 2017 detecti D tion in tion in tion in 5:21 PM on by source source source probe data data data and tar Salmone NOT NOT No No No Feb 08 lla sp DETECTE DETECTE informa informa informa 2017 DNA D tion in tion in tion in 5:21 PM [Identi source source source fier] data data data in Unspeci fied specime n by Probe & target amplifi cation method Caliciv NOT NOT No No No Feb 08 irus DETECTE DETECTE informa informa informa 2017 [Identi D tion in tion in tion in 5:21 PM fier] source source source in data data data Stool by Electro n microsc opy Escheri NOT NOT No No No Feb 08 job DETECTE DETECTE informa informa informa 2016 coli D tion in tion in tion in 5:21 PM [Presen source source source ce] in data data data Unspeci fied specime n by Culture FDA method Escheri NOT NOT No No No Feb 08 job DETECTE DETECTE informa informa informa 2017 coli D tion in tion in tion in 5:21 PM SXT source source source gene+H7 data data data gene [Identi fier] in Unspeci fied specime n by Probe & target amplifi cation method Vibrio NOT NOT No No No Feb 08 cholera DETECTE DETECTE informa informa informa 2017 e DNA D tion in tion in tion in 5:21 PM [Presen source source source ce] in data data data Unspeci fied specime n by Probe & target amplifi cation method Vibrio NOT NOT No No No Feb 08 sp DNA DETECTE DETECTE informa informa informa 2016 [Identi D tion in tion in tion in 5:21 PM fier] source source source in data data data Unspeci fied specime n by Probe & target amplifi cation method Vibrio NOT NOT No No No Feb 08 sp DETECTE DETECTE informa informa informa 2017 identif D tion in tion in tion in 5:21 PM ied in source source source Stool data data data by Organis m specifi c culture Hemoglobin.gastrointestinal [Presence] in Stool Observa Value Referen Units Interpr Notes Date tion ce etation Range Hemoglo POSITIV NEG No No No Feb 08 bin.gas E informa informa informa 2017 trointe tion in tion in tion in 5:21 PM stinal source source source [Presen data data data ce] in Stool --1st specime n
--- OUTSIDE RECORDS SUMMARY | 2017-03-27 19:36 | External Medical Summary Rpt ---
Author Author , MARICARMEN SHAY Address Unknown Phone .[employer] Immunization Name Date Rout CVX Reac Dose Comm Prov Is Faci e tion ent ider Refu lity Give sed n Infl 09-1 Intr 0.5 Hist PD20 No PD20 uenz 3-20 amus mL oric 255 255 a 17 cula al Quad r Info rmat W/Pr ion es - Sour ce Unsp ecif ied PPV2 08-0 Intr 33 0.5 Hist PD20 No PD20 3 9-20 amus mL oric 255 255 17 cula al r Info rmat ion - Sour ce Unsp ecif ied
--- OUTSIDE RECORDS SUMMARY | 2017-03-27 19:36 | External Medical Summary Rpt ---
[...] 37.0 - % High No Feb 08 brat/100 80.0 informati 2016 5:30 leukocyte on in [...]
--- OUTSIDE RECORDS SUMMARY | 2017-03-27 19:36 | External Medical Summary Rpt ---
Author Author , MARICARMEN SHAY Address Unknown Phone [email or web address] Immunization Name Date Rout CVX Reac Dose [...]
== END 2017-03-16 20:55 | disposition home or self-care (01) ==
LOC: ER 17:43
PROVIDERS: Emergency Medicine
DX: J20.9 Acute bronchitis, unspecified (principal); F17.210 Nicotine dependence, cigarettes, uncomplicated; I10 Essential (primary) hypertension; Z79.82 Long term (current) use of aspirin; I50.9 Heart failure, unspecified

== ENCOUNTER → 2017-05-07 | Outpatient (CLI) | payer MEDICARE ==
[~2017-05-07] MED LIST changes: +AZITHROMYCIN250 M1 PO; +BREO ELLIPTA1 POW IH; +BUPROPION HYDR150 M1 PO; +CLONAZEPAM 1MG T1 MG PO; +FLUOXETINE20 MG PO; +LASIX 40MG. TAB40 MG PO; +LASIX20 MG PO; +LEADER OMEPRAZO20 MG PO; +LOSARTAN POTASS50 MG PO; +MEDROL 4MG. DOSE4 MG PO; +NITROSTAT 0.4M0.4 MG SL; +WELLBUTRIN XL300 MG PO
[2017-05-07 10:14] LABS: LYMPH # 1.4 K/mm3 (0.7-4.5); LYMPH % 12.6 % (10-50.0)
[2017-05-07 12:22] LABS: BUN 15 mg/dL (7-18); GFR (ESTIMATED) 51 ML/MIN (59-)
== END ==
LOC: LAB 09:42
PROVIDERS: Surgery
DX: D12.6 Benign neoplasm of colon, unspecified (principal); K64.2 Third degree hemorrhoids; Z86.010 Personal history of colon polyps; Z01.818 Encounter for other preprocedural examination